=== PATIENT | male | born 1955 | race Caucasian/White ===

== ENCOUNTER 2019-08-22 15:08 | Outpatient (CLI) | payer MEDICARE, MEDICAID, SELFPAY | END 2019-08-22 15:09 | disposition home or self-care (01) | LOC: SPT 15:11 | PROVIDERS: Family Provider Nurse Practitioner Family; PCP Nurse Practitioner Family; Visit Provider Specialist | DX: Z47.89 Encounter for other orthopedic aftercare (principal) | CPT/HCPCS: 73610; L4361 ==

== ENCOUNTER → 2019-09-04 11:14 | Outpatient (BNVA) | payer MEDICARE, MEDICAID, SELFPAY | PROVIDERS: Family Provider Nurse Practitioner Family; PCP Nurse Practitioner Family; Visit Provider Specialist | DX: S82.491A Other fracture of shaft of right fibula, initial encounter for closed fracture (principal); X58.XXXA Exposure to other specified factors, initial encounter | CPT/HCPCS: 73610; 73630 ==

== ENCOUNTER → 2019-09-17 10:55 | Outpatient (BNVA) | payer MEDICARE, MEDICAID, SELFPAY | PROVIDERS: Family Provider Nurse Practitioner Family; PCP Nurse Practitioner Family; Visit Provider Nurse Practitioner | DX: F31.64 Bipolar disorder, current episode mixed, severe, with psychotic features (principal); F43.12 Post-traumatic stress disorder, chronic; G47.33 Obstructive sleep apnea (adult) (pediatric); Z87.820 Personal history of traumatic brain injury | CPT/HCPCS: 99213 ==

== ENCOUNTER → 2019-11-15 08:16 | Outpatient (BNVA) | payer MEDICARE, MEDICAID, SELFPAY | PROVIDERS: Visit Provider Nurse Practitioner | DX: F43.12 Post-traumatic stress disorder, chronic (principal); G47.33 Obstructive sleep apnea (adult) (pediatric); F31.64 Bipolar disorder, current episode mixed, severe, with psychotic features; Z87.820 Personal history of traumatic brain injury | CPT/HCPCS: 99214 ==

== ENCOUNTER → 2019-11-18 10:17 | Outpatient (BNVA) | payer MEDICARE, MEDICAID, SELFPAY | PROVIDERS: Visit Provider Specialist | DX: F31.9 Bipolar disorder, unspecified (principal); F60.9 Personality disorder, unspecified | CPT/HCPCS: 36415; 99214 ==

== ENCOUNTER 2019-11-18 11:40 | Outpatient (CLI) | payer MEDICARE, MEDICAID, SELFPAY | END 2019-11-18 11:41 | disposition home or self-care (01) | LOC: LAB 11:45 | PROVIDERS: Visit Provider Specialist | DX: G40.909 Epilepsy, unspecified, not intractable, without status epilepticus (principal) | CPT/HCPCS: 36415 ==

== ENCOUNTER → 2019-12-25 08:36 | Outpatient (BNVA) | payer MEDICARE, MEDICAID, SELFPAY | PROVIDERS: PCP Nurse Practitioner Family; Visit Provider Nurse Practitioner | DX: F43.12 Post-traumatic stress disorder, chronic (principal); F31.64 Bipolar disorder, current episode mixed, severe, with psychotic features; G47.33 Obstructive sleep apnea (adult) (pediatric); Z87.820 Personal history of traumatic brain injury; F41.1 Generalized anxiety disorder | CPT/HCPCS: 99214 ==

== ENCOUNTER 2020-02-05 12:41 | Outpatient (CLI) | payer MEDICARE, MEDICAID, SELFPAY ==
[2020-02-05 13:49] LABS: Basophils % 0.3 %; Eosinophils # 0.2 10^3/uL (0.0-0.8); Eosinophils % 3.7 %; Hematocrit 41.5 % (42.0-52.0); Hemoglobin 13.7 g/dL (11.7-16.6); Lymphocytes # 2.2 10^3/uL (0.8-4.8); Lymphocytes % 33.2 %; Mean Corpuscular Hemoglobin 30.4 pg (28.0-34.0); Monocytes # 0.6 10^3/uL (0.2-0.9); Monocytes % 9.6 %; Neutrophils # 3.5 10^3/uL (1.8-7.7); Neutrophils % 52.9 %; Nucleated Red Blood Cells % 0 %; Platelet Count 222 10^3/cmm (130-400); Red Blood Count 4.51 10^6/uL (4.1-5.3); Red Cell Distribution Width 12.9 % (12.1-15.1); White Blood Count 6.6 10^3/uL (4.0-10.0)
[2020-02-05 15:11] LABS: Thyroid Stimulating Hormone 1.82 uIU/mL (0.27-4.20)
[2020-02-05 15:23] LABS: Alanine Aminotransferase 10 U/L (0-41); Albumin Level 4.3 g/dL (3.5-5.2); Alkaline Phosphatase 143 IU/L (40-130); Anion Gap 17.1 (5-19); Aspartate Amino Transferase 17 U/L (0-40); Blood Urea Nitrogen 8 mg/dL (8-23); Calcium 8.9 mg/dL (8.5-10.5); Carbon Dioxide 25 mmol/L (22-29); Chloride 97 mmol/L (98-107); Chol HDL Ratio 3.15 mg/dL (1.0-5.00); Cholesterol 148 mg/dL (0-200); Globulin 2.5 g/dL (1.3-4.6); Glomerular Filtration Rate 67.8 mL/min (90-130); Glucose 100 mg/dL (65-115); HDL Cholesterol 47 mg/dL (60-100); LDL Cholesterol Calculated 79 mg/dL (50-129); LDL HDL Ratio 1.68 RATIO (0.00-3.22); Osmolality Calculated 276 mOsm/kg (285-295); Potassium 4.1 mmol/L (3.5-5.1); Sodium 135 mmol/L (136-145); Total Bilirubin 0.4 mg/dL (0.15-1.2); Total Protein 6.8 g/dL (6.6-8.7); Triglycerides 112 mg/dL (0-150)
[2020-02-05 15:54] LABS: Hepatitis C Virus Antibody Reactive (Nonreactive)
[2020-02-11 06:52] LABS: HEP C RNA Viral Load Quant <1.18 NOT DETECTED Log IU/mL (NOT DETECTED); HEP C RNA Viral Load Quant <15 NOT DETECTED IU/mL (NOT DETECTED)
== END 2020-02-05 12:42 | disposition home or self-care (01) ==
LOC: LAB 12:50
PROVIDERS: PCP Family Medicine; Visit Provider Family Medicine
DX: I10 Essential (primary) hypertension (principal); Z86.19 Personal history of other infectious and parasitic diseases; Z12.5 Encounter for screening for malignant neoplasm of prostate
CPT/HCPCS: 80053; 80061; 84153; 84443; 85025; 86803; 87522

== ENCOUNTER → 2020-02-07 07:40 | Outpatient (BNVA) | payer MEDICARE, MEDICAID, SELFPAY | PROVIDERS: PCP Family Medicine; Visit Provider Nurse Practitioner | DX: F31.64 Bipolar disorder, current episode mixed, severe, with psychotic features (principal); F43.12 Post-traumatic stress disorder, chronic | CPT/HCPCS: 99213 ==

== ENCOUNTER → 2020-02-17 08:54 | Outpatient (BNVA) | payer MEDICARE, MEDICAID, SELFPAY | PROVIDERS: PCP Family Medicine; Visit Provider Urology | DX: N35.919 Unspecified urethral stricture, male, unspecified site (principal); R82.71 Bacteriuria | CPT/HCPCS: 80053; 81001; 87086 ==

== ENCOUNTER → 2020-04-07 10:05 | Outpatient (BNVA) | payer OTHER, SELFPAY | PROVIDERS: PCP Family Medicine; Visit Provider Nurse Practitioner | DX: F31.64 Bipolar disorder, current episode mixed, severe, with psychotic features (principal); Z79.899 Other long term (current) drug therapy | CPT/HCPCS: 83036 ==

== ENCOUNTER → 2020-04-16 11:57 | Outpatient (BNVA) | payer MEDICARE, SELFPAY ==
[2020-04-08 11:18] VITALS: BP 120/74; BMI 40.5
== END ==
PROVIDERS: PCP Family Medicine; Visit Provider Nurse Practitioner Family
DX: K21.9 Gastro-esophageal reflux disease without esophagitis (principal); Z87.820 Personal history of traumatic brain injury; R42 Dizziness and giddiness; S09.90XA Unspecified injury of head, initial encounter; X58.XXXA Exposure to other specified factors, initial encounter; Z11.59 Encounter for screening for other viral diseases
CPT/HCPCS: 87635

== ENCOUNTER → 2020-04-21 08:13 | Outpatient (BNVA) | payer MEDICARE, MEDICAID, SELFPAY ==
[2020-04-08 11:18] VITALS: BP 120/74; BMI 40.5
== END ==
PROVIDERS: PCP Family Medicine; Visit Provider Nurse Practitioner
DX: F31.64 Bipolar disorder, current episode mixed, severe, with psychotic features (principal); F43.12 Post-traumatic stress disorder, chronic; F41.1 Generalized anxiety disorder
CPT/HCPCS: 99213

== ENCOUNTER 2020-04-22 08:24 | Outpatient (CLI) | payer MEDICARE, MEDICAID, SELFPAY ==
[2020-04-08 11:18] VITALS: BP 120/74; BMI 40.5
--- NOTE | 2020-04-22 09:00 | CT_ITS ---
WS: [id number] CT HEAD TECHNIQUE: Noncontrast CT of the head obtained from the skullbase to the vertex. CLINICAL INFORMATION: fall; hit head COMPARISON: CT and MRI July 06, 2017 DLP: 925.[address] scans at [facility] use at least one of these dose optimization techniques: automat ed exposure control; mA and/or kV adjustment per patient size (includes targeted exams where dose is matched to clinical indication); or iterative reconstruction. FINDINGS: No evidence of intracranial hemorrhage or mass effect. Ventricular system and basal cisterns are wilkins nt. 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 Chronic fracture repair involving the left facial bones, frontal sinus, and anterior nasal bones. N o extra-axial fluid collections. No evidence of mass or mass effect. Fusiform basilar artery ectasia appears unchanged since 2014. Paranasal sinuses and mastoid air cells are well aerated. .Normal visualized soft tissues. CT/CT head wo con* [id number] IMPRESSION: 1. No evidence of intracranial hemorrhage or mass effect. 2. 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 Mild ex vacuo dilatation of the frontal horns of greate r than right. 3. Chronic left facial and mid face fractures. 4. 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
== END 2020-04-22 08:25 | disposition home or self-care (01) ==
LOC: RADWPI 08:31
PROVIDERS: PCP Family Medicine; Visit Provider Nurse Practitioner Family
DX: G93.89 Other specified disorders of brain (principal); S02.82XA Fracture of other specified skull and facial bones, left side, initial encounter for closed fracture; W19.XXXA Unspecified fall, initial encounter
CPT/HCPCS: 70450

== ENCOUNTER → 2020-05-13 12:09 | Outpatient (BNVA) | payer MEDICARE, SELFPAY ==
[2020-04-08 11:18] VITALS: BP 120/74; BMI 40.5
== END ==
PROVIDERS: PCP Family Medicine; Visit Provider Family Medicine
DX: R60.1 Generalized edema (principal); I10 Essential (primary) hypertension
CPT/HCPCS: 80053; 80061; 85025

== ENCOUNTER → 2020-06-05 07:30 | Outpatient (BNVA) | payer MEDICARE, MEDICAID, SELFPAY ==
[2020-04-08 11:18] VITALS: BP 120/74; BMI 40.5
== END ==
PROVIDERS: PCP Family Medicine; Visit Provider Nurse Practitioner
DX: F43.12 Post-traumatic stress disorder, chronic (principal); F31.64 Bipolar disorder, current episode mixed, severe, with psychotic features
CPT/HCPCS: 99214

== ENCOUNTER 2020-06-21 06:00 | Outpatient (RCR) | payer MEDICARE, SELFPAY ==
[2020-04-08 11:18] VITALS: BP 120/74; BMI 40.5
== END 2020-07-20 23:59 | disposition home or self-care (01) ==
LOC: TPT 06:00
PROVIDERS: PCP Family Medicine; Referring Provider Family Medicine; Visit Provider Family Medicine
DX: S82.851D Displaced trimalleolar fracture of right lower leg, subsequent encounter for closed fracture with routine healing (principal); X58.XXXD Exposure to other specified factors, subsequent encounter; M79.671 Pain in right foot
CPT/HCPCS: 97110; 97161

== ENCOUNTER → 2020-07-13 07:36 | Outpatient (BNVA) | payer MEDICARE, MEDICAID, SELFPAY ==
[2020-04-08 11:18] VITALS: BP 120/74; BMI 40.5
== END ==
PROVIDERS: PCP Family Medicine; Visit Provider Nurse Practitioner
DX: F43.12 Post-traumatic stress disorder, chronic (principal); F31.64 Bipolar disorder, current episode mixed, severe, with psychotic features
CPT/HCPCS: 99213

== ENCOUNTER 2020-07-21 06:00 | Outpatient (RCR) | payer MEDICARE, SELFPAY ==
[2020-04-08 11:18] VITALS: BP 120/74; BMI 40.5
== END 2020-08-20 23:59 | disposition home or self-care (01) ==
LOC: TPT 06:00
PROVIDERS: PCP Family Medicine; Referring Provider Family Medicine; Visit Provider Family Medicine
DX: S82.851D Displaced trimalleolar fracture of right lower leg, subsequent encounter for closed fracture with routine healing (principal); X58.XXXD Exposure to other specified factors, subsequent encounter; M79.671 Pain in right foot
CPT/HCPCS: 97110

== ENCOUNTER 2020-08-04 14:46 | Emergency (ER) | payer MEDICARE, MEDICAID, SELFPAY ==
[2020-04-08 11:18] VITALS: BP 120/74; BMI 40.5
[2020-08-04 15:11] VITALS: BP 138/91; PULSE 77; RESP 18; TEMP 36.4; O2SAT 96; BMI 40.8
--- NOTE | 2020-08-04 15:58 | ED_ITS ---
HPI - Skin/Abscess/Foreign Bdy General: Chief complaint: Skin/Abscess/Foreign Body Stated complaint: RAISED BUMPS ON ARMS Time Seen by Provider: 08/04/20 15:58 Source: patient Mode of arrival: ambulatory Limitations: no limitations History of Present Illness: HPI narrative: Patient comes in with 2 indurated lesions 1 to the left upper arm that is enlarged and swollen and one in the right upper arm that consists of mainly redness and induration. Patient reports areas of started about 2 to 3 days ago. Patient had a previous area in June which was thought to be a spider bite. Review of Systems General: Reports: 10 or more systems reviewed and unremarkable except in HPI and below Skin/Breast: Reports: erythema and skin tenderness PFSH ED PFSH: Medical History (Updated 08/04/20 @ 16:19 by GLADYS Perez) Abdominal fibromatosis Benign prostatic hyperplasia without lower urinary tract symptoms Bipolar affective, mixed Bipolar disorder, current episode mixed, severe, with psychotic features Bipolar II disorder Chronic pain of right knee Complex partial epilepsy with generalization Decreased mobility and endurance Enrolled in chronic care management Gastro-esophageal reflux disease without esophagitis Left spastic hemiparesis Obstructive sleep apnea Obstructive sleep apnea (adult) (pediatric) Personal history of traumatic brain injury Post-traumatic stress disorder, chronic Primary osteoarthritis of right knee Skin cancer, basal cell face Trimalleolar fracture of right ankle Urethral stricture Vitamin D deficiency Surgical History Status post left partial knee replacement Status post open reduction and internal fixation of fracture with nonunion LEFT FEMUR Status post right partial knee replacement Family History Mother Hypertension Cancer Father , age 75 Stroke Diabetes Alcoholism Hypertension Other Hypercholesteremia Social History Smoking and tobacco status: never smoked Second hand smoke exposure: No Alcohol intake: former Lives independently: Yes Household members: none Housing: House Marital status: Legally Current occupational status: disabled History of recent travel: No Current gender identity: Male Physical Exam Const: COMMON NORMALS: no acute distress and patient oriented x3 GENERAL APPEARANCE: cooperative HENMT: COMMON NORMALS: normocephalic and Normal external nose present HEAD & SCALP: normal to inspection and normocephalic NOSE: Normal external nose present MOUTH: Normal oral and palatal mucosa present Eye: GENERAL EYE: appearance normal, both eyes and all related structures Neck/C-Spine: COMMON NORMALS: full ROM Chest: COMMONS NORMALS: normal inspection of the chest Resp: COMMON NORMALS: normal respiratory effort EFFORT & INSPECTION: Yes able to speak in complete sentences Cardio: COMMON NORMALS: regular rate and regular rhythm RATE: regular rate RHYTHM: regular rhythm GI: COMMON NORMALS: non-tender Back/Pelvis: COMMON NORMALS: thoracic and lumbar spine normal to inspection Extremity: COMMON NORMALS: normal to inspection Neuro: COMMON NORMALS: patient oriented x3 and moves all extremities Psych: COMMON NORMALS: mental status grossly normal and cooperative Skin: NARRATIVE SKIN EXAM: 1 area of redness to the right upper extremity proximally 6 cm in diameter with a central 1 cm area of induration. Second area is to the left upper arm with 3 cm fluctuant mass with a total of 7 cm of redness. Procedures Abscess I/D Site: upper extremity Side (if applicable): left Local Anesthetic: lidocaine 1% and with epi Amount of anesthesia used (mL): 4 Technique: incised with #11 blade Amount of fluid expressed (mL): 5 Irrigation: Yes Packing used?: none Complications: pain Course Vital Signs: Vital signs: Vital Signs Temperature 97.6 F 08/04/20 15:11 Pulse Rate 77 08/04/20 15:11 Respiratory Rate 18 08/04/20 15:11 Blood Pressure 138/91 08/04/20 15:11 Pulse Oximetry 96 08/04/20 15:11 MDM - Skin/Abscess/Foreign Bdy MDM Narrative: Medical decision making narrative: Patient comes in with abscess to the left upper extremity and an area of redness to the right upper extremity. Differential diagnosis includes cellulitis, abscess, IV drug use, insect bite with local reaction. Left upper arm lesion was lanced with a moderate amount of purulent drainage. Patient was put on clindamycin 450 mg twice a day for infection. Encourage patient drink plenty of fluids and follow- up with primary care. Patient reported understanding agreed to plan. Discharge Plan Discharge Patient Disposition: Home Clinical Impression: Abscess of skin or subcutaneous tissue Qualifiers: Site of cutaneous abscess: extremity Site of cutaneous abscess of extremity: upper extremity Laterality: unspecified laterality Qualified Code(s): L02.419 - Cutaneous abscess of limb, unspecified Condition: Stable Prescriptions: New clindamycin HCl 150 mg capsule 450 mg PO BID 7 Days Qty: 42 RF: 0 No Action Combigan 0.2-0.5 % drops 1 drop ophthalmic (eye) BID RF: 0 naproxen [EC-Naproxen] 375 mg tablet,delayed release (DR/EC) 375 mg PO BID RF: 0 cholecalciferol (vitamin D3) 2,000 unit tablet 2,000 unit PO ONCE RF: 0 TRAZODONE 100 mg tablet 100 mg PO .at bed RF: 0 triamcinolone acetonide [Nasacort] 55 mcg aerosol,spray 2 spray INTRANASAL DAILY Qty: 16.9 RF: 3 triamterene-hydrochlorothiazid 37.5-25 mg tablet 1 tab PO QAM Qty: 30 RF: 3 albuterol sulfate [ProAir HFA] 90 mcg/actuation HFA aerosol inhaler 2 puff INHALATION Q6H PRN (Reason: bronchospasm) Qty: 8.5 RF: 2 pantoprazole 40 mg tablet,delayed release (DR/EC) See Rx Instructions .ROUTE .COMPLEX Qty: 90 RF: 0 tamsulosin 0.4 mg capsule See Rx Instructions .ROUTE .COMPLEX Qty: 180 RF: 0 zolpidem 10 mg tablet 10 mg PO .AT HS Qty: 30 RF: 2 escitalopram oxalate [Lexapro] 10 mg tablet 10 mg PO DAILY Qty: 30 RF: 2 paliperidone [Invega] 6 mg tablet extended release 24hr 6 mg PO BID Qty: 60 RF: 2 hydroxyzine HCl 25 mg tablet 50 mg PO .HS PRN (Reason: sleep) Qty: 60 RF: 2 sulfamethoxazole-trimethoprim [Bactrim DS] 800-160 mg tablet 1 tab PO BID Qty: 20 RF: 0 oxcarbazepine 600 mg tablet See Rx Instructions .ROUTE .COMPLEX Qty: 90 RF: 2 docusate sodium 100 mg capsule 200 mg PO BID Qty: 120 RF: 3 sucralfate 1 gram tablet See Rx Instructions .ROUTE .COMPLEX Qty: 120 RF: 2 Discharge Orders: Discharge ED (Routine); Ordered 08/04/20 Ordered By: Marcos Meade Referrals: Lay Lewis MD [Primary Care Provider] - Patient Instructions: Abscess Incision and Drainage (ED) Activity Restrictions/Additional Instructions: Take antibiotics as directed. Use warm moist heat packs to the areas. Drink plenty of water. Follow-up with primary care as needed. Return to the emergency department for new concerns. Coding Level of Care Code ED Repairer And Checker for Padilla Tucker Exam Comprehensive
[2020-08-04] MEDS: clindamycin 150 mg Capsule 450 MG PO (16:24)
[2020-08-04] MEDS: lidocaine 1% INJ 20 mL INJECTION (16:25)
== END 2020-08-04 16:32 | disposition home or self-care (01) ==
PROVIDERS: Emergency Provider Nurse Practitioner Family; PCP Family Medicine
DX: L02.414 Cutaneous abscess of left upper limb (principal)
CPT/HCPCS: 10060; 12345; 99281; 99283

== ENCOUNTER 2020-10-01 09:31 | Emergency (ER) | payer MEDICARE, MEDICAID, SELFPAY ==
[2020-04-08 11:18] VITALS: BP 120/74; BMI 40.5
[2020-10-01 09:32] VITALS: BP 147/77; PULSE 88; RESP 24; TEMP 36.8; O2SAT 92; BMI 40.8
--- NOTE | 2020-10-01 09:35 | XR_ITS ---
WS: [id number] Portable AP upright chest, 10/01/2020 Clinical Data: dyspnea/cough Comparison: Portable chest, 07/19/2017. Findings: No nodules, masses or effusions are seen. The heart is normal. The pulmonary vascularity is not increased. No pneumonia or pneumothorax is seen. The aortic arch and descending aorta are tortuo us. XR/XR chest 1V portable [id number] Impression: Atherosclerosis.
--- NOTE | 2020-10-01 09:37 | ECG_ITS ---
[facility] Test Date: 2020-10-01 Pat Name: Jd Gerber Department: Room: Gender: Male Ways Operator: : 1955 Requested By: Justin Sahu Order Number: [id number] Cami MD: Raad Briones M.D. Measurements Intervals [place] Rate: 108 P: 54 TX: 152 QRS: 60 QRSD: 67 T: 52 QT: 316 QTc: 425 Interpretive Statements SINUS TACHYCARDIA Compared to ECG 05/08/2018 11:23:11 Sinus rhythm no longer present Electronically Signed On 10-01-2020 16:02:57 DANCE HALL HOSTESS by Raad Briones M.D. [email or web address] state east [email or web address]/store/[id number]
--- NOTE | 2020-10-01 09:55 | ED_ITS ---
HPI - Nausea/Vomiting/Diarrhea General: Chief complaint: Nausea/Vomiting/Diarrhea Stated complaint: N/V SOB Time Seen by Provider: 10/01/20 09:31 History of Present Illness: HPI Narrative: This 65-year-old gentleman arrived by ambulance with complaint of nausea and vomiting and a cough since last night. Patient states he ate 3 fruit bars late last night and he got sick after that. Said he was feeling fine yesterday he denies any Covid exposure denies any fever chills or exposure to him by also has been sick. Said he feels okay right now but just when get checked out. MD elicited complaint: nausea, vomiting and other (Cough) Onset (ago): hour(s) Description of vomiting: food contents Associated nausea: Yes Associated abdominal pain: No Location of pain: None Associated symtoms: Reports no associated symptoms and nausea; Denies anxiety, change in vision, chest pain or headache(s) Review of Systems Const: Denies: fever(s), chills or body aches Eyes: Denies: change in vision or blurry vision ENMT: Denies: throat pain or nasal congestion Card: Denies: chest pain or dyspnea on exertion Resp: Reports: non-productive cough; Denies: dyspnea or productive cough GI: Reports: nausea and vomiting : Denies: difficulty urinating Musc: Denies: extremity pain Skin/Breast: Denies: rash Neuro: Denies: headache(s) Psych: Denies: anxiety or depression Cresencio/Lymph: Denies: easy bruising PFSH ED PFSH: Medical History (Updated 10/01/20 @ 13:42 by GLADYS Osorio) Abdominal fibromatosis Benign prostatic hyperplasia without lower urinary tract symptoms Bipolar affective, mixed Bipolar disorder, current episode mixed, severe, with psychotic features Bipolar II disorder Chronic pain of right knee Complex partial epilepsy with generalization Decreased mobility and endurance Enrolled in chronic care management Gastro-esophageal reflux disease without esophagitis Left spastic hemiparesis Obstructive sleep apnea Obstructive sleep apnea (adult) (pediatric) Personal history of traumatic brain injury Post-traumatic stress disorder, chronic Primary osteoarthritis of right knee Skin cancer, basal cell face Trimalleolar fracture of right ankle Urethral stricture Vitamin D deficiency Surgical History Status post left partial knee replacement Status post open reduction and internal fixation of fracture with nonunion LEFT FEMUR Status post right partial knee replacement Family History Mother Hypertension Cancer Father , age 75 Stroke Diabetes Alcoholism Hypertension Other Hypercholesteremia Social History Smoking and tobacco status: never smoked Second hand smoke exposure: No Alcohol intake: former Lives independently: Yes Household members: none Housing: House Marital status: Legally Current occupational status: disabled History of recent travel: No Current gender identity: Male Physical Exam Const: COMMON NORMALS: no acute distress, average body habitus and patient oriented x3 HENMT: COMMON NORMALS: normocephalic HEAD & SCALP: normal to inspection and normocephalic FACE & SINUS: normal facial exam Eye: COMMON NORMALS: conjunctivae normal GENERAL EYE: appearance normal, both eyes and all related structures CONJUNCTIVA: Yes conjunctivae normal Neck/C-Spine: COMMON NORMALS: no JVD Chest: COMMONS NORMALS: normal inspection of the chest Resp: COMMON NORMALS: normal respiratory effort and clear to auscultation bilaterally AUSCULTATION: clear to auscultation bilaterally Cardio: COMMON NORMALS: no JVD, regular rate and regular rhythm RATE: regular rate RHYTHM: regular rhythm GI: COMMON NORMALS: Normal to inspection, nondistended, normoactive bowel sounds present PALPATION: Yes Tenderness to palpation present (GI) Details: RUQ Extremity: COMMON NORMALS: normal to inspection and full ROM Neuro: COMMON NORMALS: patient oriented x3 Skin: NARRATIVE SKIN EXAM: Very dry skin lower extremities with nonpitting edema. Course Vital Signs: Vital signs: Vital Signs Temperature 98.2 F 10/01/20 09:32 Pulse Rate 93 10/01/20 12:34 Respiratory Rate 24 H 10/01/20 09:32 Blood Pressure 99/67 10/01/20 12:34 Pulse Oximetry 100 10/01/20 12:34 MDM - Nausea/Vomiting/Diarrhea MDM Narrative: Medical decision making narrative: Dr. Manrique asked me to see this patient. Patient complains about nausea and vomiting. Started last night after eating 3 fruit bars. Patient's troponin came back elevated at 549 shared the results with Dr. Manrique. Discussed results with Dr. Hewitt at 1343 patient good for discharge is follow-up primary care provider repeat labs Lab Data: Labs: Lab Results 10/01/20 10/01/20 10/01/20 Range/Units 10:04 10:04 10:04 WBC 9.9 (4.0-10.0) 10^3/ uL RBC 4.46 (4.1-5.3) 10^6/u L Hgb 13.2 (11.7-16.6) g/dL Hct 40.6 L (42.0-52.0) % MCV 91.0 (80-94) fL MCH 29.6 (28.0-34.0) pg MCHC 32.5 (30.0-36.0) g/dL RDW 13.1 (12.1-15.1) % Plt Count 221 (130-400) 10^3/c mm MPV 10.5 H (7.4-10.4) fL Neut % (Auto) 73.6 % Lymph % (Auto) 15.3 % Churchill % (Auto) 8.9 % Eos % (Auto) 1.5 % Baso % (Auto) 0.3 % Neut # (Auto) 7.27 (1.8-7.7) 10^3/u L Lymph # (Auto) 1.5 (0.8-4.8) 10^3/u L Churchill # (Auto) 0.9 (0.2-0.9) 10^3/u L Eos # (Auto) 0.2 (0.0-0.8) 10^3/u L Baso # (Auto) 0.0 (0.0-0.1) 10^3/u L Nucleated RBC % (a uto) 0 % Nucleated RBCs # 0.0 /100WBC Sodium 137 (136-145) mmol/L Potassium 4.0 (3.5-5.1) mmol/L Chloride 101 (98-107) mmol/L Carbon Dioxide 27 (22-29) mmol/L Anion Gap 13.0 (5-19) BUN 19 (8-23) mg/dL Creatinine 0.9 (0.7-1.2) mg/dL GFR Calculation 85.2 L (90-130) mL/min Glucose 111 (65-115) mg/dL Calculated Osmolal ity 287 (285-295) mOsm/k g Calcium 9.0 (8.5-10.5) mg/dL Magnesium 2.0 (1.7-2.3) mg/dL Total Bilirubin 0.6 (0.15-1.2) mg/dL AST 26 (0-40) U/L ALT 23 (0-41) U/L Alkaline Phosphata se 86 (40-130) IU/L Creatine Kinase 549 H* (39-308) U/L Troponin T Baselin e 18 H (0-15) ng/L Troponin T 120 Min kip (0-15) ng/L Delta Troponin T (0-10) ABS# Total Protein 6.5 L (6.6-8.7) g/dL Albumin 3.8 (3.5-5.2) g/dL Globulin 2.7 (1.3-4.6) g/dL Lipase 30 (13-60) U/L Urine Color (Yellow) Urine Appearance (CLEAR) Urine pH (5-7) Ur Specific Gravit y (1.005-1.030) Urine Protein (Negative) Urine Glucose (UA) (Normal) Urine Ketones (Negative) Urine Blood (Negative) Urine Nitrate (Negative) Urine Bilirubin (Negative) Prot Sulfosalicyli c Acd (Negative) Urine Urobilinogen (Negative) mg/dL Ur Leukocyte Mita ase (Negative) Urine RBC (0-2) /hpf Urine WBC (0-5) /hpf Ur Squamous Epith Cells (0-5) /hpf Amorphous Sediment /hpf Urine Bacteria (NONE) /hpf 10/01/20 10/01/20 Range/Units 11:01 12:30 WBC (4.0-10.0) 10^3/ uL RBC (4.1-5.3) 10^6/u L Hgb (11.7-16.6) g/dL Hct (42.0-52.0) % MCV (80-94) fL MCH (28.0-34.0) pg MCHC (30.0-36.0) g/dL RDW (12.1-15.1) % Plt Count (130-400) 10^3/c mm MPV (7.4-10.4) fL Neut % (Auto) % Lymph % (Auto) % Churchill % (Auto) % Eos % (Auto) % Baso % (Auto) % Neut # (Auto) (1.8-7.7) 10^3/u L Lymph # (Auto) (0.8-4.8) 10^3/u L Churchill # (Auto) (0.2-0.9) 10^3/u L Eos # (Auto) (0.0-0.8) 10^3/u L Baso # (Auto) (0.0-0.1) 10^3/u L Nucleated RBC % (a uto) % Nucleated RBCs # /100WBC Sodium (136-145) mmol/L Potassium (3.5-5.1) mmol/L Chloride (98-107) mmol/L Carbon Dioxide (22-29) mmol/L Anion Gap (5-19) BUN (8-23) mg/dL Creatinine (0.7-1.2) mg/dL GFR Calculation (90-130) mL/min Glucose (65-115) mg/dL Calculated Osmolal ity (285-295) mOsm/k g Calcium (8.5-10.5) mg/dL Magnesium (1.7-2.3) mg/dL Total Bilirubin (0.15-1.2) mg/dL AST (0-40) U/L ALT (0-41) U/L Alkaline Phosphata se (40-130) IU/L Creatine Kinase (39-308) U/L Troponin T Baselin e (0-15) ng/L Troponin T 120 Min kip 15.53 H (0-15) ng/L Delta Troponin T -2.47 L (0-10) ABS# Total Protein (6.6-8.7) g/dL Albumin (3.5-5.2) g/dL Globulin (1.3-4.6) g/dL Lipase (13-60) U/L Urine Color Yellow (Yellow) Urine Appearance Sl hazy (CLEAR) Urine pH 8 H (5-7) Ur Specific Gravit y 1.015 (1.005-1.030) Urine Protein Neg (Negative) Urine Glucose (UA) Norm (Normal) Urine Ketones 1+ H (Negative) Urine Blood Neg (Negative) Urine Nitrate Positive H (Negative) Urine Bilirubin Neg (Negative) Prot Sulfosalicyli c Acd Negative (Negative) Urine Urobilinogen Norm (Negative) mg/dL Ur Leukocyte Mita ase Negative (Negative) Urine RBC 0-4 H (0-2) /hpf Urine WBC 0-4 H (0-5) /hpf Ur Squamous Epith Cells 0-4 H (0-5) /hpf Amorphous Sediment 3+ /hpf Urine Bacteria 1+ H (NONE) /hpf Discharge Plan Discharge Patient Disposition: Home Clinical Impression: Acute UTI Condition: Stable Prescriptions: New Keflex 500 mg capsule 500 mg PO TID 7 Days Qty: 21 RF: 0 Zofran 4 mg tablet 4 mg PO Q8H 3 Days Qty: 9 RF: 0 No Action Combigan 0.2-0.5 % drops 1 drop ophthalmic (eye) BID RF: 0 naproxen [EC-Naproxen] 375 mg tablet,delayed release (DR/EC) 375 mg PO BID PRN (Reason: Pain) RF: 0 cholecalciferol (vitamin D3) 2,000 unit tablet 2,000 unit PO DAILY RF: 0 triamcinolone acetonide [Nasacort] 55 mcg aerosol,spray 2 spray INTRANASAL DAILY Qty: 16.9 RF: 3 albuterol sulfate [ProAir HFA] 90 mcg/actuation HFA aerosol inhaler 2 puff INHALATION Q6H PRN (Reason: bronchospasm) Qty: 8.5 RF: 2 escitalopram oxalate [Lexapro] 10 mg tablet 10 mg PO DAILY Qty: 30 RF: 2 paliperidone [Invega] 6 mg tablet extended release 24hr 6 mg PO BID Qty: 60 RF: 2 sucralfate 1 gram tablet See Rx Instructions .ROUTE .COMPLEX Qty: 120 RF: 2 tamsulosin 0.4 mg capsule 0.4 mg PO BID RF: 0 pantoprazole 40 mg tablet,delayed release (DR/EC) 40 mg PO BEDTIME RF: 0 docusate sodium 100 mg capsule 100 mg PO BID RF: 0 triamterene-hydrochlorothiazid 37.5-25 mg tablet 1 tab PO DAILY RF: 0 oxcarbazepine 600 mg tablet 900 mg PO BID RF: 0 hydroxyzine HCl 25 mg tablet 50 mg PO BEDTIME PRN (Reason: sleep) RF: 0 zolpidem 10 mg tablet 10 mg PO BEDTIME RF: 0 Discharge Orders: Discharge ED (Routine); Ordered 10/01/20 Ordered By: Garcia Galdamez Referrals: Lay Lewis MD [Primary Care Provider] - Discharge Diet: Advance as tolerated Discharge Activity: Resume usual activity Patient Instructions: Urinary Tract Infection in Men (ED), Opioid Safety Activity Restrictions/Additional Instructions: Follow-up with medical provider as directed. Take medications as prescribed. Return to the ER or your medical provider if condition worsens. Please read and understand discharge instructions. If any questions ask please. Your primary care doctor within 7 to 10 days and repeat urinalysis make sure infection is cleared. Also make sure that they take look your gallbladder again make sure that the edema is gone down. Coding Level of Care Code ED Music Professor for Chg Fwd Exam Comprehensive
--- NOTE | 2020-10-01 10:09 | US_ITS ---
WS: [id number] ULTRASOUND ABDOMEN LIMITED CLINICAL INFORMATION: RUQ pain COMPARISON: None. FINDINGS: Liver Size: Mild hepatomegaly. Craniocaudal length: 16.9 cm. Echogenicity: Diffuse fatty infiltration the liver. Surface nodularity: None. Mass (size and location): None. Bile ducts Intrahepatic ducts: Normal. Common bile duct diameter: 0.3 cm. Gallbladder Mild gallbladder wall thickening with a small amount of gallbladder wall edema. Gallstones: None. Gallbladder sludge: None. Gallbladder wall thickenin.2 mm Pericholecystic fluid: None. Sonographic Patel sign: Absent. Pancreas Normal as visualized. Right kidney: Normal. Hydronephrosis: None. Size: 12.0 cm x 6.2 cm x 5.2 cm. Abdominal aorta and IVC Visualized portions are normal. Ascites: None. US/US gall bladder [id number] IMPRESSION: 1. Mild hepatomegaly with diffuse fatty infiltration. 2. Mild gallbladder wall thickening with small amount of edema. No cholelithia sis. Recommend correlation for cholecystitis. Gallbladder function can be furth er evaluated with HIDA scan. 3. Normal common bile duct. 4. No hydronephrosis in right kidney.
[2020-10-01 10:17] VITALS: O2SAT 100
[2020-10-01 10:20] LABS: Basophils % 0.3 %; Eosinophils # 0.2 10^3/uL (0.0-0.8); Eosinophils % 1.5 %; Hematocrit 40.6 % (42.0-52.0); Hemoglobin 13.2 g/dL (11.7-16.6); Lymphocytes # 1.5 10^3/uL (0.8-4.8); Lymphocytes % 15.3 %; Mean Corpuscular HGB Conc 32.5 g/dL (30.0-36.0); Mean Corpuscular Hemoglobin 29.6 pg (28.0-34.0); Mean Platelet Volume 10.5 fL (7.4-10.4); Monocytes # 0.9 10^3/uL (0.2-0.9); Monocytes % 8.9 %; Neutrophils # 7.27 10^3/uL (1.8-7.7); Neutrophils % 73.6 %; Nucleated Red Blood Cells % 0 %; Platelet Count 221 10^3/cmm (130-400); Red Blood Count 4.46 10^6/uL (4.1-5.3); Red Cell Distribution Width 13.1 % (12.1-15.1); White Blood Count 9.9 10^3/uL (4.0-10.0)
[2020-10-01] MEDS: ondansetron 2 mg/ML SDV 2 mL 4 MG IVP (10:28)
[2020-10-01] MEDS: morphine 4 mg/mL SDV 1 mL IVP (10:28)
--- NOTE | 2020-10-01 10:31 | PC.NURSE ---
PORTABLE ULTRASOUND AT BEDSIDE
[2020-10-01 10:35] LABS: Alanine Aminotransferase 23 U/L (0-41); Albumin Level 3.8 g/dL (3.5-5.2); Alkaline Phosphatase 86 IU/L (40-130); Aspartate Amino Transferase 26 U/L (0-40); Blood Urea Nitrogen 19 mg/dL (8-23); Carbon Dioxide 27 mmol/L (22-29); Chloride 101 mmol/L (98-107); Globulin 2.7 g/dL (1.3-4.6); Glomerular Filtration Rate 85.2 mL/min (90-130); Glucose 111 mg/dL (65-115); Lipase 30 U/L (13-60); Osmolality Calculated 287 mOsm/kg (285-295); Sodium 137 mmol/L (136-145); Total Bilirubin 0.6 mg/dL (0.15-1.2); Total Protein 6.5 g/dL (6.6-8.7)
[2020-10-01 10:36] LABS: Creatine Phosphokinase 549 U/L (39-308)
[2020-10-01 10:37] LABS: Troponin(5th) Baseline 18 ng/L (0-15)
[2020-10-01 11:19] LABS: Urine Appearance SL Hazy (CLEAR); Urine Color Yellow (Yellow)
[2020-10-01 11:20] LABS: Add Urine Culture? Yes; Add Urine Microscopic? YES; Amorphous Sediment Urine 3+ /hpf; Bacteria Urine 1+ /hpf; Bilirubin Urine Neg (Negative); Blood Urine Neg (Negative); Glucose Urine UA Norm (Normal); Ketones Urine 1+ (Negative); Leukocyte Esterase Urine Negative (Negative); Nitrate Urine Positive (Negative); Protein Urine Neg (Negative); RBC Urine 0-4 /hpf (0-2); Specific Gravity, Urine 1.015 (1.005-1.030); Squamous Epithelial Cell Urine 0-4 /hpf (0-5); Sulfosalicylic Acid Urine Negative (Negative); Urobilinogen Urine Norm (Negative); WBC Urine 0-4 /hpf (0-5); pH Urine 8 (5-7)
--- NOTE | 2020-10-01 11:37 | ECG_ITS ---
Test Date: 2020-10-01 Pat Name: Jd Gerber Department: Room: Gender: Male Deposit Refund Clerk: : 1955 Requested By: Justin Sahu Order Number: [id number] Cami MD: Raad Briones M.D. Measurements Intervals [place] Rate: 93 P: 55 ME: 170 QRS: 43 QRSD: 71 T: 55 QT: 328 QTc: 409 Interpretive Statements SINUS RHYTHM Compared to ECG 10/01/2020 10:48:08 Sinus tachycardia no longer present Electronically Signed On 10-01-2020 16:05:45 ORGANIC PREPARATION ANALYST by Raad Briones M.D. [id number]
[2020-10-01 11:43] VITALS: BP 120/69; PULSE 101; O2SAT 97
[2020-10-01] MEDS: cefTRIAXone 1,000 MG in sodium chloride 0.9% (plus) 50 ML 100 MG IV (12:32)
[2020-10-01 12:34] VITALS: BP 99/67; PULSE 93; O2SAT 100
[2020-10-01 13:27] LABS: Troponin 5 2HR 15.53 ng/L (0-15)
[2020-10-01 13:29] LABS: Troponin 5 2HR Delta -2.47 ABS# (0-10)
[2020-10-01 13:46] VITALS: BP 109/68; PULSE 80; O2SAT 95
== END 2020-10-01 14:00 | disposition home or self-care (01) ==
PROVIDERS: Family Medicine; Emergency Provider Nurse Practitioner Family; PCP Family Medicine
DX: N39.0 Urinary tract infection, site not specified (principal); R11.2 Nausea with vomiting, unspecified; I10 Essential (primary) hypertension; K21.9 Gastro-esophageal reflux disease without esophagitis; G47.33 Obstructive sleep apnea (adult) (pediatric); F43.12 Post-traumatic stress disorder, chronic; F31.64 Bipolar disorder, current episode mixed, severe, with psychotic features; Z87.820 Personal history of traumatic brain injury
CPT/HCPCS: 12345; 36415; 71045; 76705; 80053; 81001; 82550; 83690; 83735; 84484; 85025; 87086; 93005; 96365; 96375; 99284; J0696; J2270; J2405

== ENCOUNTER → 2020-11-25 16:17 | Outpatient (BNVA) | payer MEDICARE, MEDICAID, SELFPAY ==
[2020-10-23 13:26] VITALS: BP 120/74; BMI 40.5
== END ==
PROVIDERS: PCP Family Medicine; Visit Provider Nurse Practitioner Family
DX: M25.572 Pain in left ankle and joints of left foot (principal); N39.0 Urinary tract infection, site not specified; G40.909 Epilepsy, unspecified, not intractable, without status epilepticus
CPT/HCPCS: 73610; 80183; 81003

== ENCOUNTER → 2020-12-15 08:11 | Outpatient (BNVA) | payer MEDICARE, MEDICAID, SELFPAY ==
[2020-10-23 13:26] VITALS: BP 120/74; BMI 40.5
== END ==
PROVIDERS: PCP Family Medicine; Visit Provider Nurse Practitioner
DX: F31.64 Bipolar disorder, current episode mixed, severe, with psychotic features (principal); F43.12 Post-traumatic stress disorder, chronic
CPT/HCPCS: 99214

== ENCOUNTER → 2020-12-31 15:48 | Outpatient (BNVA) | payer MEDICARE, MEDICAID, SELFPAY ==
[2020-10-23 13:26] VITALS: BP 120/74; BMI 40.5
== END ==
PROVIDERS: PCP Family Medicine; Visit Provider Family Medicine
DX: M25.561 Pain in right knee (principal); M25.562 Pain in left knee; G89.28 Other chronic postprocedural pain; Z96.653 Presence of artificial knee joint, bilateral; N52.9 Male erectile dysfunction, unspecified; G89.29 Other chronic pain
CPT/HCPCS: 84403

== ENCOUNTER → 2021-04-07 09:50 | Outpatient (BNVA) | payer MEDICARE, MEDICAID, SELFPAY ==
[2020-10-23 13:26] VITALS: BP 120/74; BMI 40.5
== END ==
PROVIDERS: PCP Family Medicine; Visit Provider Nurse Practitioner
DX: F31.64 Bipolar disorder, current episode mixed, severe, with psychotic features (principal); F43.12 Post-traumatic stress disorder, chronic
CPT/HCPCS: 99214

== ENCOUNTER → 2021-06-23 08:16 | Outpatient (BNVA) | payer MEDICARE, MEDICAID, SELFPAY ==
[2020-10-23 13:26] VITALS: BP 120/74; BMI 40.5
== END ==
PROVIDERS: PCP Family Medicine; Visit Provider Nurse Practitioner
DX: F31.64 Bipolar disorder, current episode mixed, severe, with psychotic features (principal); F43.12 Post-traumatic stress disorder, chronic
CPT/HCPCS: 99214

== ENCOUNTER → 2021-06-24 15:20 | Outpatient (BNVA) | payer MEDICARE, MEDICAID, SELFPAY ==
[2020-10-23 13:26] VITALS: BP 120/74; BMI 40.5
== END ==
PROVIDERS: PCP Family Medicine; Visit Provider Family Medicine
DX: M25.561 Pain in right knee (principal); G89.29 Other chronic pain; K21.9 Gastro-esophageal reflux disease without esophagitis; Z12.5 Encounter for screening for malignant neoplasm of prostate; I10 Essential (primary) hypertension
CPT/HCPCS: 73562; 80053; 80061; 84443; 85025; G0103

== ENCOUNTER → 2021-07-13 10:29 | Outpatient (BNVA) | payer MEDICARE, MEDICAID, SELFPAY ==
[2020-10-23 13:26] VITALS: BP 120/74; BMI 40.5
== END ==
PROVIDERS: PCP Family Medicine; Visit Provider Psychiatry & Neurology Neurology
DX: R56.9 Unspecified convulsions (principal)
CPT/HCPCS: 80053; 80164; 85025

== ENCOUNTER → 2021-08-25 07:56 | Outpatient (BNVA) | payer MEDICARE, MEDICAID, SELFPAY ==
[2020-10-23 13:26] VITALS: BP 120/74; BMI 40.5
== END ==
PROVIDERS: PCP Family Medicine; Visit Provider Nurse Practitioner
DX: F43.12 Post-traumatic stress disorder, chronic (principal); F31.64 Bipolar disorder, current episode mixed, severe, with psychotic features
CPT/HCPCS: 99214

== ENCOUNTER 2022-02-12 16:11 | Emergency (ER) | payer MEDICARE, MEDICAID, SELFPAY ==
[2020-10-23 13:26] VITALS: BP 120/74; BMI 40.5
[2022-02-12 16:24] VITALS: PULSE 93; RESP 16; TEMP 36.6; O2SAT 100; BMI 36.1
--- NOTE | 2022-02-12 20:53 | CTR_ITS ---
PROCEDURE INFORMATION: Exam: CT Head Without Contrast Exam date and time: 02/12/2022 9:42 PM Age: 66 years old Clinical indication: Injury or trauma; Fall; Blunt trauma (contusions or hematomas); Prior surgery; Surgery type: Frontal skull; Patient HX: Patient fell at home today. C/O heat exhuastion. 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 TECHNIQUE: Imaging protocol: Computed tomography of the head without contrast. Radiation optimization: All CT scans at this facility use at least one of these dose optimization techniques: automated exposure control; mA and/or kV adjustment per patient size (includes targeted exams where dose is matched to clinical indication); or iterative reconstruction. COMPARISON: CT head wo con* [id number] 04/22/2020 9:05 AM RADIATION DOSE METRICS: Total DLP (mGy-cm): 874.42 FINDINGS: Brain: There is encephalomalacia in both frontal lobes from previous trauma or infection. No evidence of intracranial hemorrhage, mass effect, midline shift or extra-axial fluid collections. Midline structures are normal. Jacobson-white matter differentiation is normal. Cerebral ventricles: No ventriculomegaly. Paranasal sinuses: Mucosal thickening in the ethmoid and frontal sinuses. Mastoid air cells: Visualized mastoid air cells are well aerated. Bones/joints: There are old surgical changes and probable fractures of the left frontal and sphenoid bones and zygomatic arch which are unchanged. Soft tissues: Unremarkable. Vasculature: Carotid atherosclerotic calcification. CT/CT head wo con* [id number] IMPRESSION: No acute intracranial injury. Stable old surgical and traumatic changes in the frontal lobes and overlying cranium.
[2022-02-12] MEDS: sodium chloride 0.9% 1,000 ML 999 ML IV ×2 (21:10→21:58)
[2022-02-12 21:12] LABS: Basophils % 0.4 %; Eosinophils # 0.1 10^3/uL (0.0-0.8); Eosinophils % 1.7 %; Hematocrit 44.1 % (42.0-52.0); Hemoglobin 14.8 g/dL (11.7-16.6); Lymphocytes # 2.7 10^3/uL (0.8-4.8); Lymphocytes % 34.3 %; Mean Corpuscular HGB Conc 33.6 g/dL (30.0-36.0); Mean Corpuscular Hemoglobin 29.8 pg (28.0-34.0); Mean Corpuscular Volume 88.7 fl (80-94); Mean Platelet Volume 10.7 fL (7.4-10.4); Monocytes # 0.8 10^3/uL (0.2-0.9); Monocytes % 10.5 %; Neutrophils # 4.12 10^3/uL (1.8-7.7); Neutrophils % 52.8 %; Nucleated Red Blood Cells % 0 %; Platelet Count 223 10^3/cmm (130-400); Red Blood Count 4.97 10^6/uL (4.1-5.3); Red Cell Distribution Width 14.1 % (12.1-15.1); White Blood Count 7.8 10^3/uL (4.0-10.0)
--- NOTE | 2022-02-12 21:18 | ED_ITS ---
HPI - General Adult General: Chief complaint: Fall Stated complaint: POSS HEAT EXHAUSTION Time Seen by Provider: 02/12/22 20:53 History of Present Illness: [66]yo patient w/ hx of epilespy on valproic acid only BIBA to the ED with breakthrough episode of the seizure with unknown durat ion which occurred [id number]. The incident was witnessed not witnessed by anybody. Patient tells me that he was feeding his dog outside when he has had the episode of seizure. Patient reports that he was on the ground. He eventually called EMS. Patient tells me that he had mild shortness of breath after his seizure. Paitent denies any active chest pain, nausea/vomiting, diarrhea melena/hematochezia, or focal neurological deficit/ On arrival, the patient is AAOx3, GCS of 15 and answering all questions. The patient denies any associated chest pain, shortness of breath, palpitations, or any focal pain in the arms and legs. Patient tells me that he has occasional breakthrough seizure. He thinks that because he was outside this could be the cause of his seizure. Patient says that has been compliant with his valproic acid. Patient also has a history of schizophrenia and bipolar disorder. Patient tells me that he denies any suicidal ideation, homicidal ideation or active hallucination. Onset: 3pm today Duration: x1 episode Location: home Severity: moderate Associated symptoms: Deny chest pain, dyspnea, nausea, rash, palpitations or vomiting Review of Systems Const: Denies: fever(s) or chills Eyes: Denies: change in vision ENMT: Denies: mouth pain Card: Denies: chest pain or palpitations Resp: Denies: dyspnea or non-productive cough GI: Denies: abdominal pain, nausea, vomiting or diarrhea : Denies: dysuria Musc: Denies: extremity pain Skin/Breast: Denies: rash or new lesions Neuro: Reports: other (+seizure); Denies: weakness in extremities Psych: Reports: other (Normal mood) Cresencio/Lymph: Denies: easy bruising PFSH ED PFSH: Medical History Abdominal fibromatosis Benign prostatic hyperplasia without lower urinary tract symptoms Bipolar affective, mixed Bipolar disorder, current episode mixed, severe, with psychotic features Bipolar II disorder Bipolar II disorder Chronic pain of right knee Colonoscopy planned Complex partial epilepsy with generalization Decreased mobility and endurance Effusion, left hip Enrolled in chronic care management Erectile dysfunction Gastro-esophageal reflux disease without esophagitis Hepatitis C Left spastic hemiparesis Lobotomy syndrome Obstructive sleep apnea Obstructive sleep apnea (adult) (pediatric) Personal history of traumatic brain injury Post-traumatic stress disorder, chronic Primary osteoarthritis of right knee Psychiatric care Skin cancer, basal cell face Trimalleolar fracture of right ankle Urethral stricture Vitamin D deficiency Surgical History History of endoscopy History of esophagogastroduodenoscopy (EGD) History of left hip replacement History of rhinoplasty Hx of colonoscopy (~2016) negative; Dr Choi Status post left partial knee replacement Status post open reduction and internal fixation of fracture with nonunion LEFT FEMUR Status post right partial knee replacement Family History Mother Hypertension Cancer Father , age 75 Stroke Diabetes Alcoholism Hypertension Other Hypercholesteremia Social History Smoking and tobacco status: never smoked Second hand smoke exposure: No Alcohol intake: former Lives independently: Yes Household members: none Housing: House Marital status: Legally Current occupational status: disabled History of recent travel: No Current gender identity: Male Physical Exam Const: COMMON NORMALS: alert HENMT: COMMON NORMALS: atraumatic HEAD & SCALP: atraumatic MOUTH: moist mucous membranes not abnormal Eye: COMMON NORMALS: EOMs intact bilaterally and conjunctivae normal CONJUN CTIVA: Yes conjunctivae normal Neck/C-Spine: COMMON NORMALS: full ROM and supple Resp: COMMON NORMALS: normal respiratory effort and clear to auscultation bilaterally AUSCULTATION: clear to auscultation bilaterally Cardio: COMMON NORMALS: regular rate RATE: regular rate GI: COMMON NORMALS: Soft to palpation and non-tender PALPATION: Yes Soft to palpation Extremity: COMMON NORMALS: full ROM Neuro: SENSORIUM/ORIENTATION: Yes alert MOTOR EXAM: No Abnormal motor strength present and Other motor observations present (no focal motor deficits) OTHER: Mental status? Awake, alert, and oriented to self, year, month, location, and situation.? Following simple axial and appendicular commands.? Has appropriate fund of knowledge, comprehension, and insight.? Able to recall and understands pertinent aspects of medical history and current treatment status.? ? Language? Speech is fluent without word-finding difficulties.? Intact naming, expression, internal corrosion specialist, and repetition.? ? Cranial nerves? 2,3,4,6: PERRL, EOMI with no nystagmus. 5: Intact sensation to light touch, symmetric? 7: Smile symmetrical, no facial droop.? 8: Hearing grossly intact.? 9,10: Normal palate movement.? 11: Normal strength in trapezius bilaterally 12: Tongue protrudes midline.? ? Motor examination? Normal bulk & tone. Strength as follows (R/L): Delts (5/5), Biceps (5/5), Triceps (5/5), Wrist ext (5/5), hip flexors (5/5), plantarflexors (5/5), dorsiflexors (5/5). ? Sensation? Light Touch: Grossly intact and equal in upper and lower extremities bilaterally? Romberg: Negative.? Distal joint position sense intact ? Coordination? Olxcdc-kh-ieal-finger movements intact without dysmetria or past-pointing.? Rapid fingertaps: preserved amplitude without decriment.? No tremor, myoclonus or truncal ataxia.? ? Gait/stance? Steady, normal narrow base gait with appropriate arm swing and turning.? Tandem gait without hesitation or loss of balance. Psych: COMMON NORMALS: speech normal SPEECH: Yes normal speech MOOD & AFFECT: Yes euthymic mood Course Vital Signs: Vital signs: Vital Signs Temperature 97.9 F 02/12/22 16:24 Pulse Rate 93 02/12/22 16:24 Respiratory Rate 16 02/12/22 16:24 Pulse Oximetry 100 02/12/22 16:24 [facility] - General Adult Medical Decision Making []yo patient w/ known hx of seizure on valproid acid BIBA after an episode of seizure which occurred earlier today at 3pm. Back to baseline on arrival, AAOX3 with non-focal neuro exam. HDS. Exam revealed no focal trauma/deformity/bruises.The episode of seizure was witnessed and without any trauma/injury to the head. No immunosuppression hx and without preceding fever. No history of alcohol abuse or suspicion for toxin ingestion. Hx of prior seizure likely breakthrough seizure in the setting of medication change/non- compliance. H No lips/tongue lacerations. No visible bowel/bladder incontinence Airway protected. No drooling. Sats > 95%. Unlikely to be stroke, neurogenic syncope, acute delirium, intracranial tumor/mass, intracranial bleed, SAH/subdural hematoma/epidural hematoma, meningitis, or intracranial abscess, or from alcohol withdrawal. Workup: CBC, BMP, Magnesium, EKGx2 ,troponin x 2, CT head ED Interventions: 1g of keppra, PO challenge, serial reassessment EKG: No e/o STEMI. No evidence of Brugada?s sign, delta wave, epsilon wave, significantly prolonged QTc, or malignant arrhythmia. CT is negative for any acute findings. Lab findings: Electrolytes including K and Mg wnl. [11:00pm] On reassessment, patient back to baseline. In the ED, the patient received 1g of keppra in the ED. No other witnessed episodes of seizure while the patient was observed in the ED. Repeat neuro exam is non-focal. Patient takes valproicd acid. Patient tolerated PO in the ED and was able to ambulate without difficulties. Unlikely to be alternative causes of seizures since the patient has no hx of immunosuppression, no recent fevers, no recent abx/SVP RESEARCH AND STRATEGIC ANALYSIS diamond nt, no recent toxic exposure, no unilateral or focal weakness, or trauma. Rx keppra 500mg BID for seizures. I have given patient follow up with our case worker to be seen by our outpatient Neurology for breakthrough seizures. Patient aware of a call from our case worker to schedule for appointment(s) and verbalizes understanding of the importance of following up. Disposition: Discharge. Patient is given instruction for follow-up with PCP and Neurology in the next 24-48 hours. Given seizure precautions including no driving, swimming, or bathing until the patient is fully evaluated by ulisses chapman. Lab Data : 02/12/22 21:07 02/12/22 21:[address] 02/12/22 20:53 IMPRESSION: No acute intracranial injury. Stable old surgical and traumatic changes in the frontal lobes and overlying cranium. Laboratory Results WBC 7.8 10^3/uL (4.0-10.0) 02/12/22 21:07 RBC 4.97 10^6/uL (4.1-5.3) 02/12/22 21:07 Hgb 14.8 g/dL (11.7-16.6) 02/12/22 21:07 Hct 44.1 % (42.0-52.0) 02/12/22 21:07 MCV 88.7 fl (80-94) 02/12/22 21:07 MCH 29.8 pg (28.0-34.0) 02/12/22 21:07 MCHC 33.6 g/dL (30.0-36.0) 02/12/22 21:07 RDW 14.1 % (12.1-15.1) 02/12/22 21:07 Plt Count 223 10^3/cmm (130-400) 02/12/22 21:07 MPV 10.7 fL (7.4-10.4) H 02/12/22 21:07 Neut % (Auto) 52.8 % 02/12/22 21:07 Lymph % (Auto) 34.3 % 02/12/22 21:07 Throckmorton % (Auto) 10.5 % 02/12/22 21:07 Eos % (Auto) 1.7 % 02/12/22 21:07 Baso % (Auto) 0.4 % 02/12/22 21:07 Neut # (Auto) 4.12 10^3/uL (1.8-7.7) 02/12/22 21:07 Lymph # (Auto) 2.7 10^3/uL (0.8-4.8) 02/12/22 21:07 Throckmorton # (Auto) 0.8 10^3/uL (0.2-0.9) 02/12/22 21:07 Eos # (Auto) 0.1 10^3/uL (0.0-0.8) 02/12/22 21:07 Baso # (Auto) 0.0 10^3/uL (0.0-0.1) 02/12/22 21:07 Nucleated RBC % (auto) 0 % 02/12/22 21:07 Nucleated RBCs # 0.0 /100WBC 02/12/22 21:07 Sodium 138 mmol/L (136-145) 02/12/22 21:07 Potassium 3.4 mmol/L (3.5-5.1) L 02/12/22 21:07 Chloride 99 mmol/L (98-107) 02/12/22 21:07 Carbon Dioxide 30 mmol/L (22-29) H 02/12/22 21:07 Anion Gap 12.4 (5-19) 02/12/22 21:07 BUN 28 mg/dL (8-23) H 02/12/22 21:07 Creatinine 1.2 mg/dL (0.7-1.2) 02/12/22 21:07 GFR Calculation 61.0 mL/min (90-130) L 02/12/22 21:07 Glucose 93 mg/dL (65-115) 02/12/22 21:07 Calculated Osmolality 291 mOsm/kg (285-295) 02/12/22 21:07 Calcium 9.1 mg/dL (8.5-10.5) 02/12/22 21:07 Total Bilirubin 0.5 mg/dL (0.15-1.2) 02/12/22 21:07 AST 18 U/L (0-40) 02/12/22 21:07 ALT 12 U/L (0-41) 02/12/22 21:07 Alkaline Phosphatase 73 IU/L (40-130) 02/12/22 21:07 Total Protein 7.3 g/dL (6.6-8.7) 02/12/22 21:07 Albumin 4.5 g/dL (3.5-5.2) 02/12/22 21:07 Globulin 2.8 g/dL (1.3-4.6) 02/12/22 21:07 Lipase 29 U/L (13-60) 02/12/22 21:07 Valproic Acid 40.8 ug/mL (50-100) L 02/12/22 21:07 Imaging Data Other Imaging: Radiologist's impression: [address] [address] [address] Scan Report Signed Patient: Jd Gerber Unit #: [id number] : 1955 Age/Sex: 66 / M ADM Date: 02/12/22 Loc: ER Room/Bed: Attending Dr: Ordering Provider/Ordering MD: Anibal Brown MD Date of Service: 02/12/22 Procedure(s): CT head wo con* [id number] Accession Number(s): [id number] Report Number: [id number] PROCEDURE INFORMATION: Exam: CT Head Without Contrast Exam date and time: 02/12/2022 9:42 PM Age: 66 years old Clinical indication: Injury or trauma; Fall; Blunt trauma (contusions or hematomas); Prior surgery; Surgery type: Frontal skull; Patient HX: Patient fell at home today. C/O heat exhuastion. 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 TECHNIQUE: Imaging protocol: Computed tomography of the head without contrast. Radiation optimization: All CT scans at this facility use at least one of these dose optimization techniques: automated exposure control; mA and/or kV adjustment per patient size (includes targeted exams where dose is matched to clinical indication); or iterative reconstruction. COMPARISON: CT head wo con* [id number] 04/22/2020 9:05 AM RADIATION DOSE METRICS: Total DLP (mGy-cm): 874.42 FINDINGS: Brain: There is encephalomalacia in both frontal lobes from previous trauma or infection. No evidence of intracranial hemorrhage, mass effect, midline shift or extra-axial fluid collections. Midline structures are normal. Jacobson-white matter differentiation is normal. Cerebral ventricles: No ventriculomegaly. Paranasal sinuses: Mucosal thickening in the ethmoid and frontal sinuses. Mastoid air cells: Visualized mastoid air cells are well aerated. Bones/joints: There are old surgical changes and probable fractures of the left frontal and sphenoid bones and zygomatic arch which are unchanged. Soft tissues: Unremarkable. Vasculature: Carotid atherosclerotic calcification. CT/CT head wo con* [id number] IMPRESSION: No acute intracranial injury. Stable old surgical and traumatic changes in the frontal lobes and overlying cranium. ? Dictated By: Alberto Albright MD Signed By: Alberto Albright MD Signed Date/Time: 02/12/222243 DD/ 41 Discharge Plan Discharge Patient Disposition: Home Clinical Impression: Seizure, Fall Condition: Stable Prescriptions: New Keppra 500 mg tablet 500 mg PO BID 14 Days Qty: 28 0RF No Action testosterone 1.62 % (20.25 mg/1.25 gram) gel in packet 1 packet transdermal DAILY Qty: 37.5 3RF Rx Instructions: apply to max area of ONE upper arem and shoulder paliperidone [Invega] 6 mg tablet extended release 24hr 6 mg PO BID Qty: 60 1RF hydroxyzine HCl 25 mg tablet 50 mg PO BEDTIME PRN (Reason: sleep) Qty: 30 1RF escitalopram oxalate [Lexapro] 20 mg tablet 20 mg PO DAILY Qty: 30 1RF zolpidem 10 mg tablet 10 mg PO .qhs Qty: 30 2RF triamterene-hydrochlorothiazid 37.5-25 mg tablet See Rx Instructions .ROUTE .COMPLEX Qty: 30 2RF Dose Instruction: TAKE ONE TABLET BY MOUTH EVERY MORNING Rx Instructions: TAKE ONE TABLET BY MOUTH EVERY MORNING tamsulosin 0.4 mg capsule See Rx Instructions .ROUTE .COMPLEX Qty: 180 2RF Dose Instruction: TAKE ONE CAPSULE BY MOUTH TWICE DAILY Rx Instructions: TAKE ONE CAPSULE BY MOUTH TWICE DAILY pantoprazole 40 mg tablet,delayed release (DR/EC) See Rx Instructions .ROUTE .COMPLEX Qty: 90 0RF Dose Instruction: TAKE ONE TABLET BY MOUTH AT BEDTIME Rx Instructions: TAKE ONE TABLET BY MOUTH AT BEDTIME cholecalciferol (vitamin D3) 50 mcg (2,000 unit) tablet 2,000 unit PO DAILY Qty: 30 3RF albuterol sulfate [ProAir HFA] 90 mcg/actuation HFA aerosol inhaler 2 puff INHALATION Q6H PRN (Reason: bronchospasm) Qty: 8.5 2RF fluticasone propionate [Flonase Allergy Relief] 50 mcg/actuation spray,suspension 2 spray intranasal DAILY Qty: 16 2RF Rx Instructions: administer into each nostril docusate sodium 100 mg capsule See Rx Instructions .ROUTE .COMPLEX Qty: 120 0RF Dose Instruction: TAKE TWO CAPSULES BY MOUTH TWICE DAILY Rx Instructions: TAKE TWO CAPSULES BY MOUTH TWICE DAILY sildenafil 100 mg tablet See Rx Instructions .ROUTE .COMPLEX Qty: 30 2RF Dose Instruction: TAKE ONE TABLET BY MOUTH DAILY NEEDED FOR sexual activity administer 30 minutes TO FOUR hours BEFORE activity Rx Instructions: TAKE ONE TABLET BY MOUTH DAILY NEEDED FOR sexual activity administer 30 minutes TO FOUR hours BEFORE activity sucralfate 1 gram tablet See Rx Instructions .ROUTE .COMPLEX Qty: 120 2RF Dose Instruction: TAKE ONE TABLET BY MOUTH EVERY 6 HOURS Rx Instructions: TAKE ONE TABLET BY MOUTH EVERY 6 HOURS oxcarbazepine 600 mg tablet 900 mg PO BID 0RF Discharge Orders: Discharge ED (Routine); Ordered 02/12/22 Ordered By: Anibal Brown Referrals: Lay Lewis MD [Primary Care Provider] - Discharge Diet: Advance as tolerated Discharge Activity: Increase activity as tolerated Patient Instructions: Epilepsy (ED), Fall Prevention (ED) Activity Restrictions/Additional Instructions: Please come back to the emergency room for any more breakthrough episodes of seizure. Come back if any weakness in her arms, drooling, difficulty speaking, any neurological symptoms. Please do not swim bathe or drive a vehicle unattended. Our case worker will have you follow-up with Dr. Martin in the next few days. You would be expected to have a phone call with our case worker who will put you on the schedule. You can expect a call from us in the next 2-3 days. If you don't hear from us, call us back in the emergency room at [phone]. Coding Level of Care Code ED Pr Intern for Padilla Fwdeepa Exam Comprehensive
[2022-02-12 21:29] LABS: Alanine Aminotransferase 12 U/L (0-41); Albumin Level 4.5 g/dL (3.5-5.2); Alkaline Phosphatase 73 IU/L (40-130); Anion Gap 12.4 (5-19); Aspartate Amino Transferase 18 U/L (0-40); Blood Urea Nitrogen 28 mg/dL (8-23); Calcium 9.1 mg/dL (8.5-10.5); Carbon Dioxide 30 mmol/L (22-29); Chloride 99 mmol/L (98-107); Globulin 2.8 g/dL (1.3-4.6); Glucose 93 mg/dL (65-115); Lipase 29 U/L (13-60); Osmolality Calculated 291 mOsm/kg (285-295); Potassium 3.4 mmol/L (3.5-5.1); Sodium 138 mmol/L (136-145); Total Bilirubin 0.5 mg/dL (0.15-1.2); Total Protein 7.3 g/dL (6.6-8.7)
[2022-02-12 22:30] LABS: Valproic Acid Level 40.8 ug/mL (50-100)
--- NOTE | 2022-02-13 16:57 | PC.SOCIAL ---
Addendum entered by Yudith Cronin 02/24/22 15:28: academic affairs manager was told that patient he was seen by Dr. Martin in 2019. Clinic attempted to reach him at [phone] but he does not have a voicemail set up. Original Note: Neurology Follow Up Message sent to Dr. Martin's office, requesting follow up appointment. Clinic will call patient with appointment date/time.
[2022-02-17 08:14] LABS: Oxcarbazepine Metabolite <1.0 mcg/mL (8.0-35.0)
== END 2022-02-13 | disposition home or self-care (01) ==
PROVIDERS: Emergency Provider Emergency Medicine; PCP Family Medicine
DX: G40.909 Epilepsy, unspecified, not intractable, without status epilepticus (principal); Z86.19 Personal history of other infectious and parasitic diseases
CPT/HCPCS: 70450; 80053; 80164; 80183; 83690; 85025; 96365; 99284; J1953; J7030

== ENCOUNTER → 2022-02-15 08:26 | Outpatient (BNVA) | payer MEDICARE, MEDICAID, SELFPAY ==
[2020-10-23 13:26] VITALS: BP 120/74; BMI 40.5
== END ==
PROVIDERS: PCP Family Medicine; Visit Provider Nurse Practitioner
DX: F43.12 Post-traumatic stress disorder, chronic (principal); F31.64 Bipolar disorder, current episode mixed, severe, with psychotic features; F12.10 Cannabis abuse, uncomplicated
CPT/HCPCS: 99215

== ENCOUNTER 2023-12-27 09:47 | Inpatient (IN) | payer MEDICARE, MEDICAID, SELFPAY ==
[2023-10-31 15:43] VITALS: BP 120/74; BMI 40.5
[2023-12-27] VITALS (8 sets, daily range): BP systolic 100–130; BP diastolic 58–90; PULSE 71–88; RESP 16–20; TEMP 36.4–36.6; O2SAT 96–100
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
--- NOTE | 2023-12-27 09:54 | XR_ITS ---
WS: [id number] Right ankle, 2 views, 12/27/2023 Clinical Data: injury Comparison: Right ankle, 09/04/2019 Findings: There is an oblique fracture of the distal third of the right tibia. The internal fixation of the dis nathan right fibula remains the same. There are fragments inferior to the medial malleolus unchanged. Th ere is a plantar spur. There is soft tissue swelling over the tibial fracture site. There is a small metal fragment in the subcutaneous tissue adjacent to the tarsal navicular. XR/XR ankle RT 2V [id number] Impression: 1. Oblique fracture of distal right tibia. 2. Stable internal fixation of distal right fibular fracture.
[2023-12-27] MEDS: ondansetron 2 mg/ML SDV 2 mL 4 MG IVP (10:24)
[2023-12-27] MEDS: HYDROmorphone 1 mg/mL INJ 1 mL IVP ×2 (10:24→12:15)
--- NOTE | 2023-12-27 10:36 | PC.PHAR ---
Addendum entered by Sima Cruz 12/27/23 11:54: CURRENT MED LIST VERIFIED WITH PHARMACY FILL DATES. Original Note: PT STATES MEMORY IS BAD AND CAN'T REMEMBER MEDICATIONS. [facility] IS FAXING CURRENT MED LIST.
--- NOTE | 2023-12-27 11:35 | XR_ITS ---
WS: [email or web address] Portable AP semiupright chest, 12/27/2023 Clinical Data: fall Comparison: Portable chest, 10/01/2020 Findings: No nodules, masses or effusions are seen. The heart is normal. The pulmonary vascularity is not increased. No pneumonia or pneumothorax is seen. The aortic arch and descending thoracic aorta s how mild calcification and tortuosity. XR/XR chest 1V portable [id number] Impression: Atherosclerosis.
[2023-12-27 11:59] LABS: Basophils % 0.3 %; Eosinophils # 0.1 10^3/uL (0.0-0.8); Eosinophils % 1.5 %; Hematocrit 39.8 % (37-53); Lymphocytes # 1.9 10^3/uL (0.8-4.8); Lymphocytes % 19.4 %; Mean Corpuscular HGB Conc 32.7 g/dL (30-55); Mean Corpuscular Volume 94.8 fl (82-101); Mean Platelet Volume 10.7 fL (7.4-10.4); Monocytes # 0.8 10^3/uL (0.2-0.9); Monocytes % 8.8 %; Neutrophils % 69.7 %; Nucleated Red Blood Cells % 0 %; Platelet Count 163 10^3/cmm (157-399); Red Cell Distribution Width 12.9 % (12.1-15.1)
[2023-12-27 12:13] LABS: Alanine Aminotransferase 17 U/L (0-41); Albumin Level 3.4 g/dL (3.5-5.2); Alkaline Phosphatase 87 U/L (40-130); Blood Urea Nitrogen 20 mg/dL (8-23); Carbon Dioxide 25 mmol/L (22-29); Chloride 101 mmol/L (98-107); Creatinine Clr Calc Pharmacy 98.4209; Globulin 2.7 g/dL (1.3-4.6); Glomerular Filtration Rate 84.4 mL/min (90-130); Glucose 99 mg/dL (65-115); INR 1.03 (0.8-1.2); Osmolality Calculated 283 mOsm/kg (285-295); Sodium 135 mmol/L (136-145); Total Bilirubin 0.5 mg/dL (0.15-1.2); Total Protein 6.1 g/dL (6.6-8.7)
[2023-12-27 12:15] LABS: Anion Gap 13.3 (5-19); Aspartate Amino Transferase 24 U/L (0-40); Potassium 4.3 mmol/L (3.5-5.1)
--- NOTE | 2023-12-27 12:37 | ECG_ITS ---
[facility] Test Date: 2023-12-27 Pat Name: Jd Gerber Department: Room: 267 Gender: Male Assistant Administrator: : 1955 Requested By: Sonja Renae Order Number: [id number] Cami MD: Ty Hoff M.D. Measurements Intervals [place] Rate: 79 P: 26 MS: 160 QRS: 55 QRSD: 85 T: 51 QT: 396 QTc: 456 Interpretive Statements SINUS RHYTHM Compared to ECG 10/01/2020 11:57:34 No significant changes Electronically Signed On 12-27-2023 20:02:21 CDT by Ty Hoff M.D. [id number]
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
[2023-12-27 13:41] LABS: Valproic Acid Level 29.9 ug/mL (50-100)
[2023-12-27] MEDS: sodium chloride 0.9% 1,000 ML 30 ML IV (15:30)
--- NOTE | 2023-12-27 15:59 | P.ANESASSM_ITS ---
Pre-Anesthetic Assessment Height/Weight: Height 1.8 m Weight 102.512 kg Temp Pulse Resp BP Pulse Ox O2 Del Method 97.7 F 71 18 120/73 100 Room Air 12/27/23 14:05 12/27/23 14:05 12/27/23 14:05 12/27/23 14:05 12/27/23 14:05 12/27/23 14:05 Operation Date: 12/27/23 14:50 Proposed Procedures p IM Tibial Nail Insertion(Right) - Isidro Keane Caron, DO Familial anesthetic complications: None Was Beta Shar taken within 24 hours: N/A Was Clonidine taken within 24 hours: N/A Last intake: > 8hrs Social No alcohol and No tobacco Exam alert, oriented x 3, clear to auscultation bilaterally and regular rate & rhythm Airway Mallampati: Class II Dentition: other (no teeth) Pulmonary Sleep Apnea CV/HEM Hypertension Neuropsych Seizure Anesthetic Plan ASA status: 3 Anesthesia: General Risk of > 500 ml blood loss (7ml/kg in children): No Medications/Allergies Home Medications Medication Instructions Recorded Confirmed Last Taken Type aspirin 81 mg tablet,delayed 81 mg PO DAILY 06/16/22 12/27/23 12/26/23 History release cholecalciferol (vitamin D3) 50 2,000 unit PO DAILY #30 tabs 06/21/22 12/27/23 12/26/23 Rx mcg (2,000 unit) tablet albuterol sulfate 90 mcg/actuation See Rx Instructions .Route 01/20/23 12/27/23 Unknown Rx aerosol inhaler .COMPLEX #8.5 grams divalproex 500 mg tablet,delayed 500 mg PO BID #60 tabs 07/10/23 12/27/23 Unknown Rx release sildenafil 100 mg tablet See Rx Instructions .Route 11/24/23 12/27/23 Unknown Rx .COMPLEX #30 tabs docusate sodium 100 mg capsule 200 mg PO BID PRN Constipation 12/27/23 12/27/23 Unknown History hydrocodone 5 mg-acetaminophen 325 1 tab PO Q6H PRN pain #14 tabs 12/27/23 Unknown Rx mg tablet hydroxyzine HCl 25 mg tablet 25 mg PO BEDTIME PRN Sleep 12/27/23 12/27/23 12/26/23 History oxcarbazepine 600 mg tablet 900 mg PO BID 12/27/23 12/27/23 Unknown History pantoprazole 40 mg tablet,delayed 40 mg PO BEDTIME 12/27/23 12/27/23 12/26/23 History release sucralfate 1 gram tablet 1 g PO Q6H 12/27/23 12/27/23 12/26/23 History tamsulosin 0.4 mg capsule 0.4 mg PO BID 12/27/23 12/27/23 12/26/23 History triamterene 37.5 1 tab PO QAM 12/27/23 12/27/23 12/26/23 History mg-hydrochlorothiazide 25 mg tablet zolpidem 10 mg tablet 10 mg PO BEDTIME 12/27/23 12/27/23 Unknown History Allergies Allergy/AdvReac Type Severity Reaction Status Date / Time lurasidone [From Latuda] Allergy Unknown Unknown Verified 11/10/23 10:05 quetiapine [From Seroquel] Allergy Unknown Unknown Verified 11/10/23 10:05 INSECT STINGS Allergy Unknown Unknown Uncoded 11/10/23 10:05 Current Medications Generic Name Dose Route Start Last Admin Trade Name Freq PRN Reason Stop Dose Admin Sodium Chloride 1,000 mls @ 30 mls/hr 12/27/23 15:30 12/27/23 15:30 Sodium Chloride 0.9% IV 12/28/23 15:29 30 mls/hr .Q24H ADRIANA Administration PFSH Anesthesia Medical History (Updated 12/27/23 @ 12:52 by Aidan Jerez MD) Essential hypertension Cannabis abuse, uncomplicated Hepatitis C Lobotomy syndrome Effusion, left hip Colonoscopy planned Bipolar II disorder Erectile dysfunction Urethral stricture Vitamin D deficiency Decreased mobility and endurance Abdominal fibromatosis Skin cancer, basal cell face Gastro-esophageal reflux disease without esophagitis Left spastic hemiparesis Benign prostatic hyperplasia without lower urinary tract symptoms Obstructive sleep apnea Complex partial epilepsy with generalization Enrolled in chronic care management Bipolar II disorder Personal history of traumatic brain injury Obstructive sleep apnea (adult) (pediatric) Post-traumatic stress disorder, chronic Bipolar disorder, current episode mixed, severe, with psychotic features Bipolar affective, mixed Chronic pain of right knee Primary osteoarthritis of right knee Trimalleolar fracture of right ankle Surgical History History of left hip replacement History of esophagogastroduodenoscopy (EGD) History of endoscopy History of rhinoplasty Hx of colonoscopy (~2016) negative; Dr Choi Status post open reduction and internal fixation of fracture with nonunion LEFT FEMUR Status post right partial knee replacement Status post left partial knee replacement Family History Mother Hypertension Cancer Father , age 75 Stroke Diabetes Alcoholism Hypertension Other Hypercholesteremia Social History Smoking and tobacco/nicotine status: never used tobacco/nicotine Second hand smoke exposure: No Alcohol intake: former Substance/Drug Use: former Date of last use: Quit 2004 Lives independently: Yes Household members: none Housing: House Marital status: Legally Current occupational status: disabled Current gender identity: Male Data Anesthesia 12/27/23 11:48 12/27/23 11:48 Short CBC 12/27/23 Range/Units 11:48 WBC 9.60 (3.29-11.43) 10^3/uL Hgb 13.00 (11.27-16.99) g/dL Hct 39.8 (37-53) % MCV 94.8 (82-101) fl Plt Count 163 (157-399) 10^3/cmm Neut % (Auto) 69.7 % Neut # (Auto) 6.70 (1.8-7.7) 10^3/uL BMP 12/27/23 11:48 Sodium 135 L Potassium 4.3 Chloride 101 Carbon Dioxide 25 BUN 20 Creatinine 0.9 Glucose 99 Calcium 8.0 L Liver Function 12/27/23 Range/Units 11:48 Total Bilirubin 0.5 (0.15-1.2) mg/dL AST 24 (0-40) U/L ALT 17 (0-41) U/L Alkaline Phosphatase 87 (40-130) U/L Albumin 3.4 L (3.5-5.2) g/dL Coags 12/27/23 11:48 PT 13.80 INR 1.03 Cardiac Studies: 2 No Data to Display
--- NOTE | 2023-12-27 16:51 | SUR.PREOP ---
1636 patient surgery cancelled today and rescheduled for monday due to hole in operative tray and would take 2-3 hours before it would be done.iv fluids and ancef brought with patient back to room, asked charge nurse Perla if she wanted me to discard iv fluids and ancef and was told to just leave iv fluids and ancef
--- NOTE | 2023-12-27 17:51 | P.PN_ITS ---
Subjective 2 Subjective: Operating room did not have a clean tray available to do the surgery. At this point will also get the surgery to Dr. Tejada tomorrow if he has time. If not I will plan on doing it on Monday. Will keep the patient n.p.o. tonight just in case Dr. Grullon has time tomorrow. Vitals/I&O/Wt Last Vital Signs Temp 97.5 F L 12/27/23 16:49 Pulse 75 12/27/23 16:49 Resp 18 12/27/23 16:49 BP 117/63 12/27/23 16:49 Pulse Ox 97 12/27/23 16:49 O2 Del Method Room Air 12/27/23 16:49 Weight last 48 hrs Weight 226 lb Weight 226 lb Data 12/27/23 11:48 12/27/23 11:48 Attestations 2 Medical Necessity Statement*: Broken tibia Coding Level of Care Code Acute Code for Chg Fwd
[2023-12-27] MEDS: sodium chloride 0.9% 1,000 ML 75 ML IV (18:29)
[2023-12-27] MEDS: tamsulosin 0.4 mg Capsule 0.400000000000000022 MG PO (18:29)
[2023-12-27] MEDS: oxyCODONE 5 mg IR Tab/Cap PO (18:29)
[2023-12-27] MEDS: OXcarbazepine 300 mg Tablet 900 MG PO (18:29)
[2023-12-27] MEDS: divalproex DR 500 mg Tablet PO (18:29)
[2023-12-27] MEDS: pantoprazole DR 40 mg Tablet PO (21:22)
[2023-12-27] MEDS: zolpidem 5 mg Tablet 10 MG PO (21:22)
[2023-12-28] VITALS (17 sets, daily range): BP systolic 97–124; BP diastolic 63–84; PULSE 64–101; RESP 16–20; TEMP 36.2–37.2; O2SAT 91–98
[2023-12-28] MEDS: hyDROXYzine 25 mg Capsule PO (01:13)
[2023-12-28] MEDS: sodium chloride 0.9% 1,000 ML 75 ML IV (03:43)
[2023-12-28] MEDS: oxyCODONE 5 mg IR Tab/Cap PO (04:52)
[2023-12-28 06:04] LABS: Basophils % 0.7 %; Eosinophils # 0.3 10^3/uL (0.0-0.8); Eosinophils % 4.3 %; Hematocrit 36.5 % (37-53); Lymphocytes # 1.9 10^3/uL (0.8-4.8); Lymphocytes % 32.4 %; Mean Corpuscular HGB Conc 32.6 g/dL (30-55); Mean Corpuscular Hemoglobin 31.2 pg (27-33); Mean Corpuscular Volume 95.5 fl (82-101); Mean Platelet Volume 10.6 fL (7.4-10.4); Monocytes # 0.8 10^3/uL (0.2-0.9); Monocytes % 13.2 %; Neutrophils # 2.87 10^3/uL (1.8-7.7); Neutrophils % 49.1 %; Nucleated Red Blood Cells % 0 %; Platelet Count 165 10^3/cmm (157-399); Red Blood Count 3.82 10^6/uL (3.85-5.65); Red Cell Distribution Width 13.2 % (12.1-15.1); White Blood Count 5.84 10^3/uL (3.29-11.43)
[2023-12-28 06:19] LABS: Alanine Aminotransferase 13 U/L (0-41); Albumin Level 3.2 g/dL (3.5-5.2); Alkaline Phosphatase 86 U/L (40-130); Anion Gap 10.8 (5-19); Aspartate Amino Transferase 19 U/L (0-40); Blood Urea Nitrogen 16 mg/dL (8-23); Calcium 7.9 mg/dL (8.5-10.5); Carbon Dioxide 26 mmol/L (22-29); Chloride 106 mmol/L (98-107); Creatinine Clr Calc Pharmacy 113.3896; Globulin 2.4 g/dL (1.3-4.6); Glomerular Filtration Rate 96.7 mL/min (90-130); Glucose 111 mg/dL (65-115); Magnesium 2.2 mg/dL (1.7-2.3); Osmolality Calculated 288 mOsm/kg (285-295); Potassium 4.8 mmol/L (3.5-5.1); Sodium 138 mmol/L (136-145); Total Bilirubin 0.4 mg/dL (0.15-1.2); Total Protein 5.6 g/dL (6.6-8.7)
--- NOTE | 2023-12-28 06:58 | XR_ITS ---
WS: [id number] Right knee, AP and lateral views, 12/28/2023 Clinical Data: right tib fx Comparison: Right knee, 06/24/2021 Findings: There is a lateral knee joint hemiarthroplasty. The medial joint compartment shows narrowing and spur ring of the medial femoral condyle and medial tibial plateau. The posterior right patella shows irreg ularity. There is a comminuted fracture of the proximal right fibula. There is a metal fragment in the medial subcutaneous tissue of the proximal right leg unchanged. XR/XR knee RT 1-2V [id number] Impression: 1. Comminuted fracture of proximal right fibula. 2. Intact right knee lateral hemiarthroplasty. 3. Moderate osteoarthritis of the medial joint compartment of the right knee. Kellgren-Ronny Classification: grade 3 (moderate): moderate multiple osteoph ytes, definite narrowing of joint space and some sclerosis and possible deformi ty of bone ends of the medial joint compartment
--- NOTE | 2023-12-28 06:58 | XR_ITS ---
WS: [id number] Right leg including the tibia and fibula, AP and lateral views, 12/28/2023 Clinical Data: right tib fx Comparison: None. Findings: There is a comminuted fracture of the distal right tibia. There is a comminuted fracture of the proxi mal right fibula. There is internal fixation of an old distal right fibular fracture. There is a late ral hemiarthroplasty of the right knee. There is a fiberglass cast about the distal right leg, ankle and foot. There is a small metal fragment in the medial posterior subcutaneous tissue of the proximal right leg . XR/XR tibia fibula RT 2V [id number] Impression: 1. Fractures of distal right tibia and proximal right fibula. 2. Internal fixation of old right distal fibular fracture. 3. Lateral hemiarthroplasty of the right knee.
--- NOTE | 2023-12-28 06:58 | CT_ITS ---
WS: [id number] CT RIGHT LOWER EXTREMITY WITHOUT CONTRAST. HISTORY: right tib fx, r/o posterior mal Technique: All CT scans at [facility] [place] use at least one of these dose optimization techniques: automated exposure control; mA and/or kV adjustment per patient size (includes targeted exams where dose is matched to clinical indication); or iterative reconstruction. DLP: 812.81 mGy.cm COMPARISON: Radiograph 12/28/2023 Tibia: Oblique fracture distal third of the tibia with anterior displacement by 8 mm. There are a few small osseous fragments along the fracture line. Osseous fusion involving the distal tibiofibular ar ticulation. Fibula: Acute, nonhealed oblique fracture posteriorly displaced by 4 mm involving the proximal third of the fibula. There are few small osseous fragments. Distal fibular plate and screws are identified. Healed fracture distally. Prior hemiarthroplasty lateral knee joint. There is a small suprapatellar joint effusion. No acute fr acture of the knee. There is mild to moderate tricompartment osteoarthritis. Tibiotalar joint is narr owed. There are several small well circumscribed osseous fragments of bone medially. CT/CT lower leg RT wo con* [id number] IMPRESSION: 1. Oblique fracture of the distal third of the tibia with anterior displacement by 8 mm. 2. Oblique fracture proximal third of the fibula with 4 mm displacement. 3. Remote RIGHT knee lateral hemiarthroplasty. Plate and screw fixation distal fibula appears intact. There is an associated o sseous fusion between the distal tibia and fibula.
[2023-12-28] MEDS: aspirin 81 mg EC Tablet PO (07:28)
[2023-12-28] MEDS: divalproex DR 500 mg Tablet PO ×2 (07:28→17:04)
[2023-12-28] MEDS: tamsulosin 0.4 mg Capsule 0.400000000000000022 MG PO ×2 (07:28→17:04)
[2023-12-28] MEDS: OXcarbazepine 300 mg Tablet 900 MG PO ×2 (07:29→17:04)
[2023-12-28] MEDS: morphine 4 mg/mL SDV 1 mL 2 MG IVP (07:29)
--- NOTE | 2023-12-28 08:12 | P.PN_ITS ---
Documented by User: MAURY Santos STDAMELIA 12/28/23 08:19 Subjective 2 Subjective: Mr. Miles reports that he is doing well today, apart from the pain in his right leg. He has had a difficult night sleeping, but this is normal for him because he reports he is restless and anxious most of the time. He is aware of his plan, he will be most likely going to surgery today. No other concerns, no acute events overnight. Medications: Reviewed: Yes Vitals/I&O/Wt Last Vital Signs Temp 98.9 F 12/28/23 08:06 Pulse 69 12/28/23 08:06 Resp 17 12/28/23 08:06 BP 115/69 12/28/23 08:06 Pulse Ox 98 12/28/23 08:06 O2 Del Method Room Air 12/28/23 08:06 12/27/23 12/28/23 12/28/23 22:59 06:59 14:59 Intake Total 1130 / 1130 692.5 / 1822.5 Output Total 700 / 700 350 / 1050 Balance 430 / 430 342.5 / 772.5 Weight last 48 hrs Weight 237 lb 7 oz Weight 226 lb Weight 226 lb Physical Exam 2 Narrative: General: Comfortable appearing male sleeping in bed, alert and oriented, conversing appropriately. HEENT: Head shows some prior surgery scarring, with irregular symmetry. Right pupil > left, but round and reactive to light. Neck supple no thyromegaly noted. CV: Regular rate and rhythm, S1-S2 noted, no murmurs or gallops noted Pulm: Clear to auscultation bilaterally GI: Abdomen soft, nontender, bowel sounds active in all quadrants. : Deferred?no patient complaints Extremities: Right leg in splint, wrapped in Darrell wrap. Distal capillary refill intact, distal sensation intact, patient able to move toes. Data 12/28/23 05:16 12/28/23 05:16 Other Labs: EKG per my evaluation demonstrates normal sinus rhythm, normal axis, no acute changes Calcium 8.0, albumin 3.4 LFTs normal X-ray which I reviewed demonstrated postsurgical right fibula, and a fracture of the right tibia distally Chest x-ray which I reviewed demonstrates no infiltrate. Some atherosclerosis is noted. A&P Assessment and plan (1) Closed fracture of distal end of right tibia: Patient with right tibia fracture. Orthopedics indicates that should be fixed today N.p.o. Pain control Orthopedic consultation appreciated, they will be taking him to surgery sometime today. Bedrest currently Fall precautions No other obvious injuries Qualifiers: Encounter type: initial encounter Fracture morphology: unspecified fracture morphology Qualified Code(s): S82.301A - Unspecified fracture of lower end of right tibia, initial encounter for closed fracture (2) Seizures: Patient with history of seizures. Reports his last seizure was around the third because he did not take his medication. Continue his current medication. Continue seizure precautions Valproic acid: 29.9 Oxcarbazepine: Pending (3) Essential hypertension: Monitor blood pressure Hold diuretics currently as he is directly preoperative Plan Multiple other medical problems as outlined in his past medical history Full code SCD on leg it can be applied on. No anticoagulation currently is contraindicated as he is going to surgery within the next hour or so. DVT prophylaxis can be readdressed by surgeon following surgery. No direct contraindications for surgery from a medical standpoint. He has good exercise tolerance, reporting his ability to do over 2 METS of activity without chest discomfort or stopping to rest. Attestations 2 Medical Necessity Statement*: Broken tibia Coding Level of Care Code 61877 Diagnoses Closed fracture of distal end of right tibia S82.301A Encounter type: initial encounter Fracture morphology: unspecified fracture morphology Seizures R56.9 Essential hypertension I10 Time Spent (min) 22 Documented by User: Aidan Jerez MD 12/28/23 08:38 Data 12/28/23 05:16 12/28/23 05:16 A&P Assessment and plan (1) Closed fracture of distal end of right tibia: Patient with right tibia fracture. Orthopedics indicates that should be fixed today N.p.o. Pain control Orthopedic consultation appreciated, they will be taking him to surgery sometime today. Bedrest currently Fall precautions No other obvious injuries Colace added as he is on narcotic Qualifiers: Encounter type: initial encounter Fracture morphology: unspecified fracture morphology Qualified Code(s): S82.301A - Unspecified fracture of lower end of right tibia, initial encounter for closed fracture (2) Seizures: (3) Essential hypertension: Plan Drug use, methamphetamine, reported by nurse. Monitor for any withdrawal. Multiple other medical problems as outlined in his past medical history Full code Heparin for DVT prophylaxis No direct contraindications for surgery from a medical standpoint. He has good exercise tolerance, reporting his ability to do over 2 METS of activity without chest discomfort or stopping to rest. Attestations 2 Medical Necessity Statement*: Needs continued hospitalization, and for definitive treatment of his tibia fracture with surgery. Diagnoses Closed fracture of distal end of right tibia S82.301A Encounter type: initial encounter Fracture morphology: unspecified fracture morphology Seizures R56.9 Essential hypertension I10 Time Spent (min) 22
[2023-12-28] MEDS: docusate sodium 100 mg Capsule PO ×2 (08:15→17:05)
--- NOTE | 2023-12-28 10:25 | P.PN_ITS ---
Subjective 2 Subjective: Patient is going to get surgery with Dr. Tejada today for his tibial nail. Vitals/I&O/Wt Last Vital Signs Temp 98.9 F 12/28/23 08:06 Pulse 69 12/28/23 08:06 Resp 17 12/28/23 08:06 BP 115/69 12/28/23 08:06 Pulse Ox 98 12/28/23 08:06 O2 Del Method Room Air 12/28/23 08:06 12/27/23 12/28/23 12/28/23 22:59 06:59 14:59 Intake Total 1130 / 1130 692.5 / 1822.5 Output Total 700 / 700 350 / 1050 Balance 430 / 430 342.5 / 772.5 Weight last 48 hrs Weight 237 lb 7 oz Weight 226 lb Weight 226 lb Data 12/28/23 05:16 12/28/23 05:16 Attestations 2 Medical Necessity Statement*: Broken tibia Coding Level of Care Code Acute Code for [facility] Fwdeepa
[2023-12-28] MEDS: sodium chloride 0.9% 1,000 ML 30 ML IV (11:20)
[2023-12-28] MEDS: acetaminophen 1,000 MG/100 ML PIGGYBACK 400 MG IV (11:22)
[2023-12-28] MEDS: ketorolac 30 mg/mL INJ IVP (11:25)
--- NOTE | 2023-12-28 11:32 | PM.CONSULT ---
Providers/Reason For Consult Consulting Physician/Specialty*: Karlos Tejada DO/orthopedic surgery Reason for Consult*: Right distal third tibial shaft fracture with associated proximal fibula fracture Requesting Physician: Dr. Dr. Prado Attending Physician: Aidan Jerez MD Primary Care Provider: Lay Lewis MD History of Present Illness History of Present Illness Jd Gerber is a 68 year old male sustained a fall at home and was found to have significant pain and unable to bear weight to the right lower extremity brought to emergency department yesterday and was found to have a distal third tibial shaft fracture with associated proximal fibula fracture. Originally was going to be treated by Dr. Dr. Prado my partner who had seen evaluated patient however there was issues with their being a hole in the tray requiring full sterilization as result this case was canceled and Dr. Dr. Prado asked me if I had any time today and as a result agreed to assume the care of this patient Spoke with patient about proceeding with right tibial intramedullary nail. Review of his history denies any fevers chills chest pain or shortness of breath nausea or vomiting. Denies any issues with his heart or lungs. He denies being on any blood thinners besides a baby aspirin. Patient's been n.p.o. since midnight. Review of Systems General: Reports: 10 or more systems reviewed and unremarkable except in HPI and below Medications/Allergies Home Medications Medication Instructions Recorded Confirmed Last Taken Type aspirin 81 mg tablet,delayed 81 mg PO DAILY 06/16/22 12/27/23 12/26/23 History release cholecalciferol (vitamin D3) 50 2,000 unit PO DAILY #30 tabs 06/21/22 12/27/23 12/26/23 Rx mcg (2,000 unit) tablet albuterol sulfate 90 mcg/actuation See Rx Instructions .Route 01/20/23 12/27/23 Unknown Rx aerosol inhaler .COMPLEX #8.5 grams divalproex 500 mg tablet,delayed 500 mg PO BID #60 tabs 07/10/23 12/27/23 Unknown Rx release sildenafil 100 mg tablet See Rx Instructions .Route 11/24/23 12/27/23 Unknown Rx .COMPLEX #30 tabs docusate sodium 100 mg capsule 200 mg PO BID PRN Constipation 12/27/23 12/27/23 Unknown History hydrocodone 5 mg-acetaminophen 325 1 tab PO Q6H PRN pain #14 tabs 12/27/23 Unknown Rx mg tablet hydroxyzine HCl 25 mg tablet 25 mg PO BEDTIME PRN Sleep 12/27/23 12/27/23 12/26/23 History oxcarbazepine 600 mg tablet 900 mg PO BID 12/27/23 12/27/23 Unknown History pantoprazole 40 mg tablet,delayed 40 mg PO BEDTIME 12/27/23 12/27/23 12/26/23 History release sucralfate 1 gram tablet 1 g PO Q6H 12/27/23 12/27/23 12/26/23 History tamsulosin 0.4 mg capsule 0.4 mg PO BID 12/27/23 12/27/23 12/26/23 History triamterene 37.5 1 tab PO QAM 12/27/23 12/27/23 12/26/23 History mg-hydrochlorothiazide 25 mg tablet zolpidem 10 mg tablet 10 mg PO BEDTIME 12/27/23 12/27/23 Unknown History Allergies Allergy/AdvReac Type Severity Reaction Status Date / Time lurasidone [From Latuda] Allergy Unknown Unknown Verified 11/10/23 10:05 quetiapine [From Seroquel] Allergy Unknown Unknown Verified 11/10/23 10:05 INSECT STINGS Allergy Unknown Unknown Uncoded 11/10/23 10:05 Current Medications Generic Name Dose Route Start Last Admin Trade Name Freq PRN Reason Stop Dose Admin Aspirin 81 mg 12/28/23 09:00 12/28/23 07:28 Aspirin 81 Mg Ec Tablet PO 81 mg DAILY ADRIANA Administration Divalproex Sodium 500 mg 12/27/23 18:00 12/28/23 07:[address] 500 Mg Tablet PO 500 mg BID ADRIANA Administration Docusate Sodium 100 mg 12/28/23 09:00 12/28/23 08:15 Docusate Sodium 100 Mg Capsule PO 100 mg BID ADRIANA Administration Heparin Sodium (Porcine) 5,000 unit 12/27/23 18:00 12/28/23 03:44 Heparin 5,000 Unit/Ml Inj 1 Ml SUBCUT Not Given Q12H ADRIANA Sodium Chloride 1,000 mls @ 75 mls/hr 12/27/23 13:38 12/28/23 03:43 Sodium Chloride 0.9% IV 75 mls/hr .[id number] ADRIANA Administration Sodium Chloride 1,000 mls @ 30 mls/hr 12/27/23 15:30 12/27/23 15:30 Sodium Chloride 0.9% IV 12/28/23 15:29 30 mls/hr .Q24H ADRIANA Administration Sodium Chloride 1,000 mls @ 30 mls/hr 12/28/23 11:15 12/28/23 11:20 Sodium Chloride 0.9% IV 12/29/23 11:14 30 mls/hr .Q24H ADRIANA Administration Morphine Sulfate 2 mg 12/27/23 13:38 12/28/23 07:29 Morphine 4 Mg/Ml Sdv 1 Ml IVP 2 mg Q4H PRN Administration SEVERE PAIN Oxcarbazepine 900 mg 12/27/23 18:00 12/28/23 07:29 Oxcarbazepine 300 Mg Tablet PO 900 mg BID ADRIANA Administration Oxycodone HCl 5 mg 12/27/23 13:38 12/28/23 04:52 Oxycodone 5 Mg Ir Tab/Cap PO 5 mg Q6H PRN Administration SEVERE PAIN Pantoprazole Sodium 40 mg 12/27/23 21:00 12/27/23 21:[address] 40 Mg Tablet PO 40 mg BEDTIME ADRIANA Administration Tamsulosin HCl 0.4 mg 12/27/23 18:00 12/28/23 07:28 Tamsulosin 0.4 Mg Capsule PO 0.4 mg BID ADRIANA Administration Zolpidem Tartrate 10 mg 12/27/23 21:00 12/27/23 21:22 Zolpidem 5 Mg Tablet PO 10 mg BEDTIME ADRIANA Administration PFSH Acute PFSH: Medical History (Updated 12/28/23 @ 11:37 by Karlos Tejada DO) Essential hypertension Cannabis abuse, uncomplicated Hepatitis C Lobotomy syndrome Effusion, left hip Colonoscopy planned Bipolar II disorder Erectile dysfunction Urethral stricture Vitamin D deficiency Decreased mobility and endurance Abdominal fibromatosis Skin cancer, basal cell face Gastro-esophageal reflux disease without esophagitis Left spastic hemiparesis Benign prostatic hyperplasia without lower urinary tract symptoms Obstructive sleep apnea Complex partial epilepsy with generalization Enrolled in chronic care management Bipolar II disorder Personal history of traumatic brain injury Obstructive sleep apnea (adult) (pediatric) Post-traumatic stress disorder, chronic Bipolar disorder, current episode mixed, severe, with psychotic features Bipolar affective, mixed Chronic pain of right knee Primary osteoarthritis of right knee Trimalleolar fracture of right ankle Surgical History History of left hip replacement History of esophagogastroduodenoscopy (EGD) History of endoscopy History of rhinoplasty Hx of colonoscopy (~2015) negative; Dr Choi Status post open reduction and internal fixation of fracture with nonunion LEFT FEMUR Status post right partial knee replacement Status post left partial knee replacement Family History Mother Hypertension Cancer Father , age 75 Stroke Diabetes Alcoholism Hypertension Other Hypercholesteremia Social History Smoking and tobacco/nicotine status: never used tobacco/nicotine Second hand smoke exposure: No Alcohol intake: former Substance/Drug Use: former Date of last use: Quit 2004 Lives independently: Yes Household members: none Housing: House Marital status: Legally Current occupational status: disabled Current gender identity: Male Vitals/I&O/Wt Last Vital Signs Temp 97.2 F L 12/28/23 11:08 Pulse 77 12/28/23 11:08 Resp 18 12/28/23 11:08 BP 97/84 12/28/23 11:08 Pulse Ox 98 12/28/23 11:08 O2 Del Method Room Air 12/28/23 11:08 12/27/23 12/28/23 12/28/23 22:59 06:59 14:59 Intake Total 1130 / 1130 692.5 / 1822.5 Output Total 700 / 700 350 / 1050 Balance 430 / 430 342.5 / 772.5 Weight last 48 hrs Weight 237 lb 7 oz Weight 226 lb Weight 226 lb Physical Exam Narrative: Examination is limited secondary to patient having knee short leg AO splint to the right lower extremity limiting full detailed orthopedic examination. However patient has no tenderness to palpation at the knee tenderness palpation at the proximal fibula through this point as well as tenderness to palpation distally at the tibial shaft fracture. His toes are pointing roughly 90 degrees from his kneecap consistent with malrotation splints in place is clean dry and intact. Distal pulses are able to be palpated at the DP and are palpable 2+. Toes warm well-perfused brisk cap refill less than 2 seconds he does endorse sensation tact light touch to the superficial and deep peroneal nerve distribution rest of the sensory and motor examination is limited due to the splint he is able to wiggle the toes. Previous surgical incision site at the midline of the knee for patient's partial knee replacement Data 12/28/23 05:16 12/28/23 05:16 Xray Ortho: Radiologist's impression: XR/XR tibia fibula RT 2V [id number] Impression: 1. Fractures of distal right tibia and proximal right fibula. 2. Internal fixation of old right distal fibular fracture. 3. Lateral hemiarthroplasty of the right knee. Other CT: Radiologist's impression: CT/CT lower leg RT wo con* [id number] IMPRESSION: 1. Oblique fracture of the distal third of the tibia with anterior displacement by 8 mm. 2. Oblique fracture proximal third of the fibula with 4 mm displacement. 3. Remote RIGHT knee lateral hemiarthroplasty. Plate and screw fixation distal fibula appears intact. There is an associated osseous fusion between the distal tibia and fibula. A&P Assessment and plan (1) Closed fracture of distal end of right tibia: Qualifiers: Encounter type: initial encounter Fracture morphology: unspecified fracture morphology Qualified Code(s): S82.301A - Unspecified fracture of lower end of right tibia, initial encounter for closed fracture (2) Right knee pain: (3) Fracture of proximal end of fibula: Plan splint on in place clean dry and intact pain control Nonweightbearing right lower extremity Elevation and ice as needed PT/OT Hold a.m. anticoagulation N.p.o. since midnight X-rays and CT scans reviewed demonstrate distal third tibial shaft fracture with associated proximal fibula fracture. Previous hardware is intact to the knee as well as to the distal fibula Plan to proceed to the OR today for right tibia infrapatellar intramedullary nail MDM: Patient is a pleasant 68-year-old gentleman sustained a fall at home where he lives by himself and does sometimes have to utilize a cane for walking and found to have a distal third tibia fracture with associated proximal fibula fracture he has previous hardware in his ankle that is all well-healed no signs of loosening and does have appears to be osseous fusion of the distal tibiofibular articulation. Proximally has a lateral unicompartmental knee replacement which appears to be stable and amendable for possibly a nail fixation around this implant. My partner originally had seen patient evaluated unfortunately there was issues with a hole being in the tray and case cannot be performed yesterday as result he has been n.p.o. since midnight and was asked by my partner I had time I be able this point in time that excepted care for this patient will take care of the distal third tibia fracture. We talked about his treatment options in detail as far as nonoperative and operative invention. At this point time my recommendation would be for surgical intervention given his already significant deformity as well as for earlier mobilization and pain control. He understands the ins and outs of procedure the risk benefits complication alternatives of surgery. Risk of surge include not limited to make a better make it worse malunion, nonunion hardware failure, infection, wound issues, persistent pain. Understanding risk of surgery elects proceed all questions been answered at this time. We did talk about the proximal fibula fracture and plan will be to treat this nonoperatively which she understands and agrees to proceed with this all questions answered at this time. Plan will be to use an infrapatellar approach to miss the previous partial knee replacement. Consult Attestations Medical Necessity Statement: Treatment for right distal third tibial shaft fracture and proximal fibula fracture Coding Level of Care Code Acute Code for [facility] Fw Diagnoses Closed fracture of distal end of right tibia S82.301A Encounter type: initial encounter Fracture morphology: unspecified fracture morphology Right knee pain M25.561 Fracture of proximal end of fibula S82.839A Time Spent (min) 35
--- NOTE | 2023-12-28 11:46 | W.PM.OPSUD ---
Surgery/Procedure H&P Update DATE OF PROCEDURE: December 28, 2023 DATE H&P PERFORMED: 12/28/23 H&P UPDATE INFORMATION: I have reviewed H&P completed within last 30 days, I have examined patient prior to procedure and No changes to prior documentation PREOP DIAGNOSIS: Right tibial fracture PRIMARY INDICATION FOR PROCEDURE: Right distal tibia fracture with associated proximal fibula fracture PLANNED PROCEDURE: Operation Date: 12/27/23 14:50 Proposed Procedures p IM Tibial Nail Insertion Infrapatellar(Right) - Karlos Tejada DO Operation Date: 12/28/23 11:30 Proposed Procedures p IM Tibial Nail Insertion(Right) - Karlos Tejada DO
[2023-12-28] MEDS: ceFAZolin 2,000 MG in sodium chloride 0.9% (plus) 50 ML 100 MG IV ×2 (11:48→19:48)
--- NOTE | 2023-12-28 12:00 | XR_ITS ---
WS: [id number] Right leg including the tibia and fibula, C-arm fluoroscopy views, 12/28/2023 Clinical Data: OR PICS; ORIF RT TIBFIB Comparison: Right leg, 12/28/2023 Findings: The fracture of the distal third of the right tibia is repaired with a long intramedullary alison fixed with distal and proximal screws. XR/XR tibia fibula RT 2V [id number] Impression: Internal fixation of distal right tibial fracture.
--- NOTE | 2023-12-28 14:31 | W.PM.BPON ---
Date of Procedure: [12/28/2023] Surgeon: Karlos Tejada DO Roll Table Operator(s): RITCHIE Santiago Procedure(s) performed: Right tibia infrapatellar intramedullary nail Closed treatment right proximal fibula fracture?short leg splint application Findings of the procedure(s): Patient found to have a right distal third tibial shaft fracture with associated right proximal fibula fracture. Was able to achieve satisfactory reduction with [id number] reduction clamps. Patient then subsequently underwent a right tibia infra patellar intramedullary nail underwent this procedure without issues or complications plan is for closed treatment of the right proximal fibula fracture and placed in a short leg splint at this point in time. Patient taken to PACU in stable condition will be admitted to the floor postoperatively. Estimated blood loss: 150 mL Specimen(s) removed: None Post-operative diagnosis: Right distal third tibia shaft fracture and associated right proximal fibula fracture
--- NOTE | 2023-12-28 14:34 | P.OP_ITS ---
Operative Report Date of procedure: December 28, 2023 Pre-op diagnosis: Right distal third tibia shaft fracture Right proximal fibula fracture Post-op diagnosis: Same Procedure done: Right tibia infrapatellar intramedullary nail Implants: 12 mm x 375 mm tibial T2 alpha nail Woodbridge Woodbridge 2.5 mm DBM putty Woodbridge 5 mm locking screws 45, 50, 40, 47.5, 45 mm [place] +5 mm tibia end cap Surgeon: Karlos Tejada DO Cloth Winder Machine Operator: RITCHIE Santiago?FA was necessary for assistance in this case with leg positioning retraction and protection of neurovascular structures as well as assistance in holding reduction as well as assist with implant/fixation wound closure and dressing application. Anesthesia: General Estimated blood loss (mL): 150 none IV fluids: 800 mL Complications: None Findings: See operative report narrative Condition: stable Disposition: floor Brief History: Patient seen and fall and found to have a right distal third tibia fracture with a concomitant proximal fibula fracture. Originally was consulted by my partner but unable to get fixed the day he was operating due to issues with a hole in her tray and as result he asked if I would be able to take care of it next day which now are day. As result we had OR time and patient was agreeable to allow me to resume his care. We reviewed his radiographic findings and at this point time he has a distal third tibia fracture and a proximal fibula fracture he has previous hardware at the knee of the lateral partial knee replacement which appears to be stable and could be amenable to a infrapatellar tibial nail and his distal fibula is found to have an osseous union of the syndesmosis with no evidence of hardware failure of the distal fibula ORIF that a previously been performed. He has no posterior malleolus involvement. At this point time would be amenable for a right tibia infrapatellar intramedullary nail we talked about treatment options in detail and through shared decision-making elects proceed with surgical intervention this will allow for 1 improved alignment with increased chance of healing as well as for earlier mobilization and pain control. He understands his risks with surgery and elects proceed all questions answered at this time. Procedure: Patient seen eval in the preoperative holding area. Consent was reviewed and signed with patient correct extremity was then marked. Patient was then seen evaluated anesthesia once cleared by anesthesia was taken back to the operative suite. Patient was then transported on the flattop Benji table underwent anesthesia per the anesthesia part was properly anesthetized all bony prominences well-padded patient appropriate secured to the bed a ipsilateral hip bump was placed on the right lower extremity. The right lower extremity had a nonsterile tourniquet applied to the right thigh. We then subsequently prepped and draped the right lower extremity in standard orthopedic fashion. Final timeout performed. Patient received appropriate preoperative antibiotics. No tourniquet was insufflated during this case Started off by bring in fluoroscopic imaging. Given patient had previous partial knee replacement we brought in the C arm and utilized a radiolucent triangles to obtain imaging. Utilize C arm or and subsequently evaluated the fracture pattern. At this point in time this was found to have a spiral distal third tibia fracture. Tried to manually reduce this which was clearly evident patient would need a [id number] reduction clamp. I subsequently had my chef's assistant maintain traction and dial in appropriate rotation once I satisfied with this I made 2 small stab incisions in a perpendicular fashion and placing my tenaculum clamp directly on the bone I then subsequently clamped and held the fracture in satisfactory reduction this was taken multiple orthogonal images satisfied with my reduction and then subsequently proceeded with infrapatellar tibial nail. This was held by my chef's assistant throughout the case. Next I then subsequently used patient's previous midline incision and extended this distally over the tibial tubercle to obtain my infrapatellar starting point sharp scalpel incision through skin subcutaneous tissues dissection scissors to dissect out the peritenon and then subsequently made an arthrotomy medial to the extensor mechanism to perform an arthrotomy. I maintain exact hemostasis throughout this dissection and then subsequently I identified the step off the articular margin and utilized a guidewire and placed this in the standard starting point I used fluoroscopic imaging to make sure this was medial to the lateral tibial spine I did have to cheat the slightly a little more medial given patient's hardware as well as a little more anteriorly to avoid any type of involvement of the partial knee replacement laterally. This was in center center position on AP and lateral once satisfied with this this was advanced to appropriate depth utilize opening reamer and then subsequently placed ball- tipped guidewire down to the tibial physis. I then took appropriate measurement my fracture is maintained throughout this entire time. This was measured to be 375 mm. While maintaining reduction I then subsequently reamed starting at a 9 mm and reamed all the way up to a 13.5 mm which had excellent chatter with left plan for selection of a 12 mm x 375 mm tibial nail. This was then subsequently loaded and then impacted into appropriate position. This was kept in excellent alignment and reduction was maintained. It was confirmed with fluoroscopic imaging. I then subsequently placed 2 of my proximal locking screws utilizing my targeting guide. This was then subsequently triple sleeve was then placed first in the static position sharp incision was made and blunt dissection down to bone placed guide subsequently drilled measured and placed appropriate length screw in the static locking then subsequently drilled in the dynamic position for possible later dynamization if necessary this is subsequently drilled measured appropriate length screw placed here these both had excellent fixation and appropriate length and this completed my proximal fixation Next I then utilized fluoroscopic imaging distally. Once again maintain fracture reduction I obtained perfect circles with plan to start with my medial to lateral screw fixation. Perfect circles were then subsequently obtained I used scalpel incision made through skin and blunt dissection with hemostats down to bone I utilized perfect [place]ahu[place] technique drilled measured and placed appropriate length screws x 2 in the distal locking position this obtained excellent fixation of the distal fracture fragment in order to add increased fixation here given this and the smaller fracture fragment as the distal segment I subsequently did a perfect [place]ahu[place] technique and placed 1 anterior to posterior screw I made a small incision once I obtained a perfect [place]ahu[place] technique and then used blunt dissection to spread directly over the anterior surface of the tibia this was then drilled measured and appropriate length screw was then placed to complete 3 distal locking screws. At this point time clamps and everything was subsequently removed as well as the guides and took final x-rays this was confirmed to being in satisfactory reduction as well as fixation of the tibial nail. The proximal fibula fragment was maintained in good alignment. Ankle was stressed and there is no evidence of issues with the syndesmosis given patient's already osseous fusion. This completed the procedure. I then subsequently thoroughly irrigated all incision sites. We then did place a 5+ millimeter endcap proximally and then subsequently used DBM putty to fill in the reamed anterior portion and closed the medial retinaculum and medial arthrotomy to the patellar tendon to close this area. Once again exact hemostasis was maintained throughout the case the incisions were then closed in layered fashion of 0 Vicryl 2-0 Vicryl and ralph and 2 oh and ralph for all small stab incisions. Incisions were then covered with Xeroform 4 x 4's ABD Curlex soft roll and a standard AO splint was then subsequently applied. Patient tolerated procedure without issues or complications. Patient then subsequently awake from anesthesia and taken to PACU in stable condition Disposition: Patient taken back in stable condition will return to floor postoperatively we will keep nonweightbearing maintain splint rehospitalization will see appropriate discharge instructions well as pain medication DVT prophylaxis.
--- NOTE | 2023-12-28 15:05 | XR_ITS ---
WS: [id number] Right leg including the tibia and fibula, AP and lateral views, 12/28/2023 Clinical Data: r tibia nail Comparison: Right knee, 12/28/2023, right leg 12/28/2023 Findings: There is a long intramedullary alison the length of the tibia fixed proximally and distally with screws. The rods reducing the fracture of the distal third of the right tibia. The old fracture of the dista l right fibula shows a plate and screws unchanged. The right knee hemiarthroplasty remains in good po sition. There is a comminuted fracture of the proximal right fibula. There are surgical ralph at th e operative sites. XR/XR tibia fibula RT 2V 10204 Impression: Internal fixation of fracture of distal third of right tibia.
[2023-12-28] MEDS: lactated ringers 1,000 ML 75 ML IV (15:20)
[2023-12-28] MEDS: calcium carb-vit d 600mg/400unit 1 Tablet 1 EACH PO (17:04)
[2023-12-28] MEDS: heparin 5,000 unit/mL INJ 1 mL 5000 UNIT SUBCUT (17:05)
[2023-12-28] MEDS: chlorhexidine gluconate 0.12% Btl 473 mL 30 ML MUCOUS MEM ×2 (17:07→20:46)
[2023-12-28] MEDS: iron polysaccharide complex 150 mg Capsule PO (17:17)
[2023-12-28] MEDS: zolpidem 5 mg Tablet 10 MG PO (20:45)
[2023-12-28] MEDS: pantoprazole DR 40 mg Tablet PO (20:45)
[2023-12-29] VITALS (12 sets, daily range): BP systolic 105–120; BP diastolic 62–79; PULSE 82–98; RESP 16–18; TEMP 36.8–37.1; O2SAT 93–97
[2023-12-29] MEDS: oxyCODONE 5 mg IR Tab/Cap PO ×3 (03:14→18:08)
[2023-12-29] MEDS: ceFAZolin 2,000 MG in sodium chloride 0.9% (plus) 50 ML 100 MG IV ×2 (03:15→11:20)
[2023-12-29] MEDS: ketorolac 30 mg/mL INJ 15 MG IVP ×3 (03:17→18:08)
[2023-12-29] MEDS: lactated ringers 1,000 ML 75 ML IV ×2 (03:18→17:50)
[2023-12-29] MEDS: morphine 4 mg/mL SDV 1 mL 2 MG IVP ×2 (05:40→11:23)
[2023-12-29] MEDS: heparin 5,000 unit/mL INJ 1 mL 5000 UNIT SUBCUT ×2 (05:42→17:51)
[2023-12-29 06:08] LABS: Basophils % 0.3 %; Eosinophils # 0.1 10^3/uL (0.0-0.8); Eosinophils % 0.6 %; Hematocrit 32.2 % (37-53); Lymphocytes % 25.7 %; Mean Corpuscular HGB Conc 32.3 g/dL (30-55); Mean Corpuscular Hemoglobin 30.2 pg (27-33); Mean Corpuscular Volume 93.6 fl (82-101); Mean Platelet Volume 10.7 fL (7.4-10.4); Monocytes # 0.8 10^3/uL (0.2-0.9); Monocytes % 10.8 %; Neutrophils # 4.84 10^3/uL (1.8-7.7); Neutrophils % 62.2 %; Nucleated Red Blood Cells % 0 %; Platelet Count 162 10^3/cmm (157-399); Red Blood Count 3.44 10^6/uL (3.85-5.65); Red Cell Distribution Width 13.1 % (12.1-15.1); White Blood Count 7.78 10^3/uL (3.29-11.43)
[2023-12-29 06:34] LABS: Anion Gap 12.2 (5-19); Blood Urea Nitrogen 20 mg/dL (8-23); Calcium 7.8 mg/dL (8.5-10.5); Carbon Dioxide 25 mmol/L (22-29); Chloride 106 mmol/L (98-107); Creatinine Clr Calc Pharmacy 94.2312; Glomerular Filtration Rate 74.8 mL/min (90-130); Glucose 108 mg/dL (65-115); Osmolality Calculated 291 mOsm/kg (285-295); Potassium 4.2 mmol/L (3.5-5.1); Sodium 139 mmol/L (136-145)
[2023-12-29] MEDS: OXcarbazepine 300 mg Tablet 900 MG PO ×2 (08:15→17:50)
[2023-12-29] MEDS: multivitamin therapeutic Tablet 1 TAB PO (08:15)
[2023-12-29] MEDS: aspirin 81 mg EC Tablet PO (08:16)
[2023-12-29] MEDS: docusate sodium 100 mg Capsule PO ×2 (08:16→17:50)
[2023-12-29] MEDS: tamsulosin 0.4 mg Capsule 0.400000000000000022 MG PO ×2 (08:16→17:51)
[2023-12-29] MEDS: iron polysaccharide complex 150 mg Capsule PO ×2 (08:16→17:50)
[2023-12-29] MEDS: calcium carb-vit d 600mg/400unit 1 Tablet 1 EACH PO ×2 (08:16→17:50)
[2023-12-29] MEDS: divalproex DR 500 mg Tablet PO ×2 (08:17→17:50)
--- NOTE | 2023-12-29 09:32 | PC.SOCIAL ---
IMM Update Pg. 2 of IMM updated and reviewed with patient who verbalized understanding. Copy provided.
--- NOTE | 2023-12-29 12:57 | P.PN_ITS ---
Subjective 2 Subjective: seen this morning no acute events overnight talked with PT they dont believe pt safe to go home pt says he cannot go up the stairs he is requesting rehab and in agreement with PT recommendations social media content specialist working on rehab placement pt says he would like pain medicine Vitals/I&O/Wt Last Vital Signs Temp 98.3 F 12/29/23 11:33 Pulse 88 12/29/23 11:33 Resp 18 12/29/23 11:33 BP 120/72 12/29/23 11:33 Pulse Ox 97 12/29/23 11:33 O2 Del Method Room Air 12/29/23 11:33 O2 Flow Rate 6 12/28/23 14:31 12/28/23 12/29/23 12/29/23 22:59 06:59 14:59 Intake Total 2913 / 3063 947.5 / 4010.5 530 / 530 Output Total 450 / 600 500 / 500 Balance 2913 / 2913 497.5 / 3410.5 30 / 30 Weight last 48 hrs Weight 116.261 kg Weight 107.7 kg Weight 102.512 kg Physical Exam 2 Narrative: General: Comfortable appearing male sleeping in bed, alert and oriented, conversing appropriately. HEENT: Head shows some prior surgery scarring, with irregular symmetry. Right pupil > left, but round and reactive to light. CV: Regular rate and rhythm, S1-S2 noted, no murmurs or gallops noted Pulm: Clear to auscultation bilaterally GI: Abdomen soft, nontender, bowel sounds active in all quadrants. : Deferred?no patient complaints Extremities: Right leg in splint, wrapped in Darrell wrap. Distal capillary refill intact, distal sensation intact, patient able to move toes. Data 12/29/23 05:44 12/29/23 05:44 A&P Assessment and plan (1) Closed fracture of distal end of right tibia: Patient with right tibia fracture. Orthopedics indicates that should be fixed today N.p.o. Pain control Orthopedic consultation appreciated, they will be taking him to surgery sometime today. Bedrest currently Fall precautions No other obvious injuries Colace added as he is on narcotic Qualifiers: Encounter type: initial encounter Fracture morphology: unspecified fracture morphology Qualified Code(s): S82.301A - Unspecified fracture of lower end of right tibia, initial encounter for closed fracture (2) Seizures: Patient with history of seizures. Reports his last seizure was around the third because he did not take his medication. Continue his current medication. Continue seizure precautions Valproic acid: 29.9 Oxcarbazepine: Pending (3) Essential hypertension: Monitor blood pressure Hold diuretics currently as he is directly preoperative Plan Drug use, methamphetamine, reported by nurse. Monitor for any withdrawal. Multiple other medical problems as outlined in his past medical history Full code Heparin for DVT prophylaxis Todays plan 12/29/2023 - awaiting rehab placement - ortho management as per ortho Attestations 2 Medical Necessity Statement*: awaiting rehab placement Diagnoses Closed fracture of distal end of right tibia S82.301A Encounter type: initial encounter Fracture morphology: unspecified fracture morphology Seizures R56.9 Essential hypertension I10
--- NOTE | 2023-12-29 13:24 | P.PN_ITS ---
Subjective 2 Subjective: Patient seen and examined. Pain controlled medications. Work with therapy today. Vitals/I&O/Wt Last Vital Signs Temp 98.3 F 12/29/23 11:33 Pulse 88 12/29/23 11:33 Resp 18 12/29/23 11:33 BP 120/72 12/29/23 11:33 Pulse Ox 97 12/29/23 11:33 O2 Del Method Room Air 12/29/23 11:33 O2 Flow Rate 6 12/28/23 14:31 12/28/23 12/29/23 12/29/23 22:59 06:59 14:59 Intake Total 2913 / 3063 947.5 / 4010.5 530 / 530 Output Total 450 / 600 500 / 500 Balance 2913 / 2913 497.5 / 3410.5 30 / 30 Weight last 48 hrs Weight 256 lb 5 oz Weight 237 lb 7 oz Weight 226 lb Physical Exam 2 Narrative: Orthopedic examination: Examination right lower extremity demonstrates splint on in place and left in place no signs of saturation, dressing/splint limits examination. Patient endorses sensations intact light touch in the toes and able to wiggle the toes. Rest of motor and sensory examination is limited secondary to patient's splint dressing. His compartments around the splint are soft and compressible. Distal pulses are palpable. Data 12/30/23 05:39 12/30/23 05:39 Xray Ortho: Radiologist's impression: Ordering Provider/Ordering MD: Karlos Tejada Date of Service: 12/28/23 Procedure(s): XR tibia fibula RT 2V 02557 Accession Number(s): [id number] Report Number: [id number] WS: [id number] Right leg including the tibia and fibula, AP and lateral views, 12/28/2023 Clinical Data: r tibia nail Comparison: Right knee, 12/28/2023, right leg 12/28/2023 Findings: There is a long intramedullary alison the length of the tibia fixed proximally and distally with screws. The rods reducing the fracture of the distal third of the right tibia. The old fracture of the distal right fibula shows a plate and screws unchanged. The right knee hemiarthroplasty remains in good position. There is a comminuted fracture of the proximal right fibula. There are surgical ralph at the operative sites. XR/XR tibia fibula RT 2V 55775 Impression: Internal fixation of fracture of distal third of right tibia. A&P Assessment and plan (1) Closed fracture of distal end of right tibia: Qualifiers: Encounter type: initial encounter Fracture morphology: unspecified fracture morphology Qualified Code(s): S82.301A - Unspecified fracture of lower end of right tibia, initial encounter for closed fracture (2) Fracture of proximal end of fibula: Plan Nonweightbearing right lower extremity Dressing change PRN, splint left in place Reviewed x-rays and labs DVT prophylaxis Pain control Elevation and ice as needed PT/OT Orthopedics will continue to follow on the floor, plan for dressing change tomorrow. Attestations 2 Medical Necessity Statement*: Ongoing care right tibial nail and closed treatment of right proximal fibula fracture, awaiting placement for discharge Coding Level of Care Code Acute Code for Chg Fwd Diagnoses Closed fracture of distal end of right tibia S82.301A Encounter type: initial encounter Fracture morphology: unspecified fracture morphology Fracture of proximal end of fibula S82.839A Time Spent (min) 15
[2023-12-29] MEDS: chlorhexidine gluconate 0.12% Btl 473 mL 30 ML MUCOUS MEM ×2 (17:51→21:36)
[2023-12-29] MEDS: pantoprazole DR 40 mg Tablet PO (21:33)
[2023-12-29] MEDS: zolpidem 5 mg Tablet 10 MG PO (21:33)
[2023-12-30] VITALS (8 sets, daily range): BP systolic 106–141; BP diastolic 63–79; PULSE 77–99; RESP 17–20; TEMP 36.3–36.9; O2SAT 94–98
[2023-12-30] MEDS: heparin 5,000 unit/mL INJ 1 mL 5000 UNIT SUBCUT ×2 (05:17→17:23)
[2023-12-30 05:48] LABS: Basophils % 0.3 %; Eosinophils # 0.2 10^3/uL (0.0-0.8); Eosinophils % 3.4 %; Hematocrit 33.1 % (37-53); Lymphocytes # 1.8 10^3/uL (0.8-4.8); Lymphocytes % 26.8 %; Mean Corpuscular HGB Conc 31.1 g/dL (30-55); Mean Corpuscular Hemoglobin 30.3 pg (27-33); Mean Corpuscular Volume 97.4 fl (82-101); Mean Platelet Volume 10.5 fL (7.4-10.4); Monocytes # 0.9 10^3/uL (0.2-0.9); Monocytes % 13.2 %; Neutrophils # 3.79 10^3/uL (1.8-7.7); Nucleated Red Blood Cells % 0 %; Platelet Count 161 10^3/cmm (157-399); Red Cell Distribution Width 13.4 % (12.1-15.1); White Blood Count 6.76 10^3/uL (3.29-11.43)
[2023-12-30 06:03] LABS: Anion Gap 9.5 (5-19); Blood Urea Nitrogen 21 mg/dL (8-23); Calcium 7.4 mg/dL (8.5-10.5); Carbon Dioxide 26 mmol/L (22-29); Chloride 106 mmol/L (98-107); Creatinine Clr Calc Pharmacy 118.4303; Glomerular Filtration Rate 96.7 mL/min (90-130); Glucose 111 mg/dL (65-115); Osmolality Calculated 288 mOsm/kg (285-295); Potassium 4.5 mmol/L (3.5-5.1); Sodium 137 mmol/L (136-145)
[2023-12-30] MEDS: OXcarbazepine 300 mg Tablet 900 MG PO ×2 (08:52→17:22)
[2023-12-30] MEDS: iron polysaccharide complex 150 mg Capsule PO ×2 (08:52→17:22)
[2023-12-30] MEDS: lactated ringers 1,000 ML 75 ML IV (08:52)
[2023-12-30] MEDS: divalproex DR 500 mg Tablet PO ×2 (08:52→17:22)
[2023-12-30] MEDS: tamsulosin 0.4 mg Capsule 0.400000000000000022 MG PO ×2 (08:52→17:22)
[2023-12-30] MEDS: multivitamin therapeutic Tablet 1 TAB PO (08:52)
[2023-12-30] MEDS: aspirin 81 mg EC Tablet PO (08:52)
[2023-12-30] MEDS: docusate sodium 100 mg Capsule PO ×2 (08:53→17:22)
[2023-12-30] MEDS: calcium carb-vit d 600mg/400unit 1 Tablet 1 EACH PO ×2 (08:53→17:23)
[2023-12-30] MEDS: chlorhexidine gluconate 0.12% Btl 473 mL 30 ML MUCOUS MEM ×4 (08:53→20:41)
[2023-12-30] MEDS: oxyCODONE 5 mg IR Tab/Cap PO ×2 (08:53→15:40)
--- NOTE | 2023-12-30 09:09 | P.PN_ITS ---
Subjective 2 Subjective: Patient seen and examined this morning. Hemoglobin stable. Changed dressing today incisions are clean dry and intact and a new standard AO splint was applied. Patient tolerated this. Still has some issues with pain but controlled with medications. Reiterated importance of nonweightbearing. Stable from Ortho standpoint. Vitals/I&O/Wt Last Vital Signs Temp 97.4 F L 12/30/23 07:27 Pulse 89 12/30/23 07:27 Resp 18 12/30/23 08:53 BP 130/79 12/30/23 07:27 Pulse Ox 98 12/30/23 08:53 O2 Del Method Room Air 12/30/23 07:27 O2 Flow Rate 6 12/28/23 14:31 12/29/23 12/30/23 12/30/23 22:59 06:59 14:59 Intake Total 1360 / 1890 2009 1000 / 1000 Output Total 650 / 1150 600 / 1750 Balance 710 / 740 -480 / 260 1000 / 1000 Weight last 48 hrs Weight 259 lb 1 oz Weight 256 lb 5 oz Physical Exam 2 Narrative: Orthopedic examination: Examination right lower extremity demonstrates splint on in place subsequently taken down ralph are in place incisions are clean dry and intact. New dressing applied, new AO splint applied. His compartments are soft compressible endorses sensations intact light touch distally to the toes he is able to perform a straight leg raise he can wiggle toes plantarflex and dorsiflex ankle. Distal pulses are palpable. Normal postoperative swelling and bruising ecchymosis throughout the right lower extremity Data 12/30/23 05:39 12/30/23 05:39 A&P Assessment and plan (1) Closed fracture of distal end of right tibia: Qualifiers: Encounter type: initial encounter Fracture morphology: unspecified fracture morphology Qualified Code(s): S82.301A - Unspecified fracture of lower end of right tibia, initial encounter for closed fracture (2) Fracture of proximal end of fibula: Plan Nonweightbearing right lower extremity Dressing changed today and new splint applied Reviewed x-rays and labs DVT prophylaxis Pain control Elevation and ice as needed PT/OT Stable for discharge from orthopedic standpoint orthopedic surgery team will sign off patient at this time follow peripherally if there is any question pertaining patient care for her to contact orthopedics on-call. Will follow-up with us in the office in 2 weeks. Attestations 2 Medical Necessity Statement*: Ongoing care right tibial nail and closed treatment of right proximal fibula fracture Coding Level of Care Code Acute Code for Chg Fwd Diagnoses Closed fracture of distal end of right tibia S82.301A Encounter type: initial encounter Fracture morphology: unspecified fracture morphology Fracture of proximal end of fibula S82.839A Time Spent (min) 25
[2023-12-30] MEDS: TRAMadol 50 mg Tablet PO ×2 (11:51→17:23)
--- NOTE | 2023-12-30 14:41 | P.PN_ITS ---
Subjective 2 Subjective: Seen this. Morning. No acute events overnight Says he would like more pain meds. Awaiting rehab placement Vitals/I&O/Wt Last Vital Signs Temp 97.5 F L 12/30/23 12:03 Pulse 82 12/30/23 12:03 Resp 19 H 12/30/23 12:03 BP 141/73 12/30/23 12:03 Pulse Ox 94 12/30/23 12:03 O2 Del Method Room Air 12/30/23 12:03 O2 Flow Rate 6 12/28/23 14:31 12/29/23 12/30/23 12/30/23 22:59 06:59 14:59 Intake Total 1360 / 1890 120 / 2010 1480 / 1480 Output Total 650 / 1150 600 / 1750 600 / 600 Balance 710 / 740 -480 / 260 880 / 880 Weight last 48 hrs Weight 117.509 kg Weight 116.261 kg Physical Exam 2 Narrative: General: Comfortable appearing male sleeping in bed, alert and oriented, conversing appropriately. HEENT: Head shows some prior surgery scarring, with irregular symmetry. Right pupil > left, but round and reactive to light. CV: Regular rate and rhythm, S1-S2 noted, no murmurs or gallops noted Pulm: Clear to auscultation bilaterally GI: Abdomen soft, nontender, bowel sounds active in all quadrants. : Deferred?no patient complaints Extremities: Right leg in splint, wrapped in Darrell wrap. Distal capillary refill intact, distal sensation intact, patient able to move toes. Data 12/30/23 05:39 12/30/23 05:39 A&P Assessment and plan (1) Closed fracture of distal end of right tibia: Patient with right tibia fracture. Orthopedics indicates that should be fixed today N.p.o. Pain control Orthopedic consultation appreciated, they will be taking him to surgery sometime today. Bedrest currently Fall precautions No other obvious injuries Colace added as he is on narcotic Qualifiers: Encounter type: initial encounter Fracture morphology: unspecified fracture morphology Qualified Code(s): S82.301A - Unspecified fracture of lower end of right tibia, initial encounter for closed fracture (2) Seizures: Patient with history of seizures. Reports his last seizure was around the third because he did not take his medication. Continue his current medication. Continue seizure precautions Valproic acid: 29.9 Oxcarbazepine: Pending (3) Essential hypertension: Monitor blood pressure Hold diuretics currently as he is directly preoperative Plan Drug use, methamphetamine, reported by nurse. Monitor for any withdrawal. Multiple other medical problems as outlined in his past medical history Full code Heparin for DVT prophylaxis Todays plan 12/30/2023 - awaiting rehab placement - ortho management as per ortho -Adjusted pain medication doses Attestations 2 Medical Necessity Statement*: awaiting rehab placement Diagnoses Closed fracture of distal end of right tibia S82.301A Encounter type: initial encounter Fracture morphology: unspecified fracture morphology Seizures R56.9 Essential hypertension I10
[2023-12-30 16:08] LABS: Oxcarbazepine Metabolite <1.0 mcg/mL (8.0-35.0)
[2023-12-30] MEDS: ketorolac 30 mg/mL INJ 15 MG IVP (19:49)
[2023-12-30] MEDS: pantoprazole DR 40 mg Tablet PO (20:38)
[2023-12-30] MEDS: zolpidem 5 mg Tablet 10 MG PO (20:38)
[2023-12-31] VITALS (12 sets, daily range): BP systolic 109–127; BP diastolic 64–80; PULSE 77–95; RESP 16–19; TEMP 36.3–36.9; O2SAT 94–99
[2023-12-31] MEDS: oxyCODONE 5 mg IR Tab/Cap PO ×4 (03:05→22:57)
[2023-12-31] MEDS: heparin 5,000 unit/mL INJ 1 mL 5000 UNIT SUBCUT ×2 (05:09→16:51)
[2023-12-31] MEDS: lactated ringers 1,000 ML 75 ML IV (05:09)
[2023-12-31 07:26] LABS: Basophils % 0.3 %; Eosinophils # 0.3 10^3/uL (0.0-0.8); Eosinophils % 4.5 %; Hematocrit 32.5 % (37-53); Lymphocytes # 1.7 10^3/uL (0.8-4.8); Lymphocytes % 29.1 %; Mean Corpuscular HGB Conc 30.8 g/dL (30-55); Mean Corpuscular Hemoglobin 31.1 pg (27-33); Mean Corpuscular Volume 100.9 fl (82-101); Monocytes # 0.8 10^3/uL (0.2-0.9); Monocytes % 14.3 %; Neutrophils # 2.95 10^3/uL (1.8-7.7); Neutrophils % 51.5 %; Nucleated Red Blood Cells % 0 %; Platelet Count 169 10^3/cmm (157-399); Red Blood Count 3.22 10^6/uL (3.85-5.65); Red Cell Distribution Width 13.3 % (12.1-15.1); White Blood Count 5.74 10^3/uL (3.29-11.43)
[2023-12-31 07:49] LABS: Blood Urea Nitrogen 14 mg/dL (8-23); Calcium 7.6 mg/dL (8.5-10.5); Carbon Dioxide 25 mmol/L (22-29); Chloride 103 mmol/L (98-107); Creatinine Clr Calc Pharmacy 117.8476; Glomerular Filtration Rate 112.8 mL/min (90-130); Glucose 95 mg/dL (65-115); Osmolality Calculated 280 mOsm/kg (285-295); Sodium 135 mmol/L (136-145)
[2023-12-31 07:56] LABS: Anion Gap 11.2 (5-19); Potassium 4.2 mmol/L (3.5-5.1)
[2023-12-31] MEDS: divalproex DR 500 mg Tablet PO ×2 (08:43→16:50)
[2023-12-31] MEDS: aspirin 81 mg EC Tablet PO (08:43)
[2023-12-31] MEDS: docusate sodium 100 mg Capsule PO ×2 (08:43→16:50)
[2023-12-31] MEDS: OXcarbazepine 300 mg Tablet 900 MG PO ×2 (08:43→16:50)
[2023-12-31] MEDS: tamsulosin 0.4 mg Capsule 0.400000000000000022 MG PO ×2 (08:43→16:51)
[2023-12-31] MEDS: calcium carb-vit d 600mg/400unit 1 Tablet 1 EACH PO ×2 (08:43→16:50)
[2023-12-31] MEDS: multivitamin therapeutic Tablet 1 TAB PO (08:43)
[2023-12-31] MEDS: chlorhexidine gluconate 0.12% Btl 473 mL 30 ML MUCOUS MEM ×3 (08:43→20:03)
[2023-12-31] MEDS: iron polysaccharide complex 150 mg Capsule PO ×2 (08:43→16:50)
--- NOTE | 2023-12-31 09:04 | P.PN_ITS ---
Subjective 2 Subjective: seen today awaiting insurance auth for rehab placement Vitals/I&O/Wt Last Vital Signs Temp 97.3 F L 12/31/23 07:52 Pulse 77 12/31/23 07:52 Resp 18 12/31/23 08:42 BP 127/80 12/31/23 07:52 Pulse Ox 98 12/31/23 08:42 O2 Del Method Room Air 12/31/23 07:52 O2 Flow Rate 6 12/28/23 14:31 12/30/23 12/31/23 12/31/23 22:59 06:59 14:59 Intake Total 880 / 2360 540 / 2900 Output Total 500 / 1100 1150 / 2250 400 / 400 Balance 380 / 1260 -610 / 650 -400 / -400 Weight last 48 hrs Weight 116.375 kg Weight 117.509 kg Physical Exam 2 Narrative: General: NAD HEENT: Head shows some prior surgery scarring, CV: Regular rate and rhythm, S1-S2 noted, no murmurs or gallops noted Pulm: Clear to auscultation bilaterally GI: Abdomen soft, nontender, bowel sounds active in all quadrants. Extremities: Right leg in splint, wrapped in Darrell wrap. Distal capillary refill intact, distal sensation intact, patient able to move toes. Data 12/31/23 06:07 12/31/23 06:07 A&P Assessment and plan (1) Closed fracture of distal end of right tibia: Patient with right tibia fracture. Orthopedics indicates that should be fixed today N.p.o. Pain control Orthopedic consultation appreciated, they will be taking him to surgery sometime today. Bedrest currently Fall precautions No other obvious injuries Colace added as he is on narcotic Qualifiers: Encounter type: initial encounter Fracture morphology: unspecified fracture morphology Qualified Code(s): S82.301A - Unspecified fracture of lower end of right tibia, initial encounter for closed fracture (2) Seizures: Patient with history of seizures. Reports his last seizure was around the third because he did not take his medication. Continue his current medication. Continue seizure precautions Valproic acid: 29.9 Oxcarbazepine: Pending (3) Essential hypertension: Monitor blood pressure Hold diuretics currently as he is directly preoperative Plan Drug use, methamphetamine, reported by nurse. Monitor for any withdrawal. Multiple other medical problems as outlined in his past medical history Full code Heparin for DVT prophylaxis Todays plan 12/31/2023 - awaiting rehab placement - ortho management as per ortho -Adjusted pain medication doses Attestations 2 Medical Necessity Statement*: awaiting rehab placement Diagnoses Closed fracture of distal end of right tibia S82.301A Encounter type: initial encounter Fracture morphology: unspecified fracture morphology Seizures R56.9 Essential hypertension I10
[2023-12-31] MEDS: TRAMadol 50 mg Tablet PO ×2 (12:09→20:03)
[2023-12-31] MEDS: zolpidem 5 mg Tablet 10 MG PO (20:03)
[2023-12-31] MEDS: pantoprazole DR 40 mg Tablet PO (20:03)
[2024-01-01] VITALS (8 sets, daily range): BP systolic 100–117; BP diastolic 65–77; PULSE 77–89; RESP 16–18; TEMP 36.4–36.9; O2SAT 95–98
[2024-01-01 03:48] LABS: Anion Gap 12.1 (5-19); Blood Urea Nitrogen 12 mg/dL (8-23); Calcium 7.6 mg/dL (8.5-10.5); Carbon Dioxide 27 mmol/L (22-29); Chloride 102 mmol/L (98-107); Creatinine Clr Calc Pharmacy 117.8476; Glomerular Filtration Rate 112.8 mL/min (90-130); Glucose 117 mg/dL (65-115); Osmolality Calculated 285 mOsm/kg (285-295); Potassium 4.1 mmol/L (3.5-5.1); Sodium 137 mmol/L (136-145)
[2024-01-01] MEDS: TRAMadol 50 mg Tablet PO ×4 (04:34→22:36)
[2024-01-01] MEDS: heparin 5,000 unit/mL INJ 1 mL 5000 UNIT SUBCUT ×2 (06:21→17:08)
[2024-01-01] MEDS: oxyCODONE 5 mg IR Tab/Cap PO ×3 (06:21→19:05)
[2024-01-01] MEDS: docusate sodium 100 mg Capsule PO ×2 (08:34→17:07)
[2024-01-01] MEDS: calcium carb-vit d 600mg/400unit 1 Tablet 1 EACH PO ×2 (08:34→17:07)
[2024-01-01] MEDS: iron polysaccharide complex 150 mg Capsule PO ×2 (08:34→17:07)
[2024-01-01] MEDS: tamsulosin 0.4 mg Capsule 0.400000000000000022 MG PO ×2 (08:34→17:07)
[2024-01-01] MEDS: divalproex DR 500 mg Tablet PO ×2 (08:34→17:07)
[2024-01-01] MEDS: chlorhexidine gluconate 0.12% Btl 473 mL 30 ML MUCOUS MEM ×4 (08:35→22:37)
[2024-01-01] MEDS: aspirin 81 mg EC Tablet PO (08:35)
[2024-01-01] MEDS: OXcarbazepine 300 mg Tablet 900 MG PO ×2 (08:35→17:07)
[2024-01-01] MEDS: multivitamin therapeutic Tablet 1 TAB PO (08:35)
[2024-01-01 09:38] LABS: SARS Covid-2 Antigen negative (Negative)
--- NOTE | 2024-01-01 11:58 | P.PN_ITS ---
Subjective 2 Subjective: seen today awaiting insurance auth for rehab placement Vitals/I&O/Wt Last Vital Signs Temp 97.9 F 01/01/24 07:57 Pulse 77 01/01/24 07:57 Resp 18 01/01/24 07:57 BP 117/73 01/01/24 07:57 Pulse Ox 95 01/01/24 07:57 O2 Del Method Room Air 01/01/24 07:57 O2 Flow Rate 6 12/28/23 14:31 12/31/23 01/01/24 01/01/24 22:59 06:59 14:59 Intake Total 1960 / 2560 600 / 3160 480 / 480 Output Total 600 / 1400 1200 / 2600 600 / 600 Balance 1360 / 1160 -600 / 560 -120 / -120 Weight last 48 hrs Weight 117.934 kg Weight 116.375 kg Physical Exam 2 Narrative: General: NAD HEENT: Head shows some prior surgery scarring, CV: Regular rate and rhythm, S1-S2 noted, no murmurs or gallops noted Pulm: Clear to auscultation bilaterally GI: Abdomen soft, nontender, bowel sounds active in all quadrants. Extremities: Right leg in splint, wrapped in Darrell wrap. Distal capillary refill intact, distal sensation intact, patient able to move toes. Data 12/31/23 06:07 01/01/24 02:46 A&P Assessment and plan (1) Closed fracture of distal end of right tibia: Patient with right tibia fracture. Orthopedics indicates that should be fixed today N.p.o. Pain control Orthopedic consultation appreciated, they will be taking him to surgery sometime today. Bedrest currently Fall precautions No other obvious injuries Colace added as he is on narcotic Qualifiers: Encounter type: initial encounter Fracture morphology: unspecified fracture morphology Qualified Code(s): S82.301A - Unspecified fracture of lower end of right tibia, initial encounter for closed fracture (2) Seizures: Patient with history of seizures. Reports his last seizure was around the third because he did not take his medication. Continue his current medication. Continue seizure precautions Valproic acid: 29.9 Oxcarbazepine: Pending (3) Essential hypertension: Monitor blood pressure Hold diuretics currently as he is directly preoperative Plan Drug use, methamphetamine, reported by nurse. Monitor for any withdrawal. Multiple other medical problems as outlined in his past medical history Full code Heparin for DVT prophylaxis Todays plan 01/01/2024 - awaiting rehab placement - ortho management as per ortho Attestations 2 Medical Necessity Statement*: awaiting rehab placement Diagnoses Closed fracture of distal end of right tibia S82.301A Encounter type: initial encounter Fracture morphology: unspecified fracture morphology Seizures R56.9 Essential hypertension I10
--- NOTE | 2024-01-01 12:02 | PC.OT ---
OT TREATMENT ATTEMPTED THIS A.M. PATIENT SEATED IN RECLINER. PATIENT STATES THAT HE DOES NOT FEEL WELL TODAY AND WOULD LIKE TO CRAWL UNDER THE BED. HE IS ENCOURAGED TO ALLOW STAFF TO ASSIST WITH GROOMING. HE DECLINES AT THIS TIME BUT IS AGREEABLE TO OT RETURNING IN P.M. TO ATTEMPT.
--- NOTE | 2024-01-01 14:46 | PC.SOCIAL ---
IMM Updated Updated pt on IMM. No questions voiced. Provided pt a copy. Initialed, dated, & timed copy in chart.
[2024-01-01] MEDS: pantoprazole DR 40 mg Tablet PO (22:37)
[2024-01-01] MEDS: lactated ringers 1,000 ML 75 ML IV (22:37)
[2024-01-02] VITALS: BP 119/70; PULSE 83; RESP 18; TEMP 36.8
[2024-01-02 04:00] VITALS: BP 118/73; PULSE 77; RESP 18; TEMP 37; O2SAT 95
[2024-01-02 04:39] VITALS: RESP 22
[2024-01-02] MEDS: oxyCODONE 5 mg IR Tab/Cap PO (04:39)
[2024-01-02] MEDS: heparin 5,000 unit/mL INJ 1 mL 5000 UNIT SUBCUT (05:33)
[2024-01-02 06:00] VITALS: BMI 35.6
[2024-01-02 07:48] VITALS: BP 110/70; PULSE 71; RESP 18; TEMP 36.6; O2SAT 97
[2024-01-02] MEDS: TRAMadol 50 mg Tablet PO (08:08)
[2024-01-02] MEDS: OXcarbazepine 300 mg Tablet 900 MG PO (08:08)
[2024-01-02] MEDS: docusate sodium 100 mg Capsule PO (08:09)
[2024-01-02] MEDS: divalproex DR 500 mg Tablet PO (08:09)
[2024-01-02] MEDS: aspirin 81 mg EC Tablet PO (08:09)
[2024-01-02] MEDS: chlorhexidine gluconate 0.12% Btl 473 mL 30 ML MUCOUS MEM (08:09)
[2024-01-02] MEDS: multivitamin therapeutic Tablet 1 TAB PO (08:09)
[2024-01-02] MEDS: iron polysaccharide complex 150 mg Capsule PO (08:09)
[2024-01-02] MEDS: tamsulosin 0.4 mg Capsule 0.400000000000000022 MG PO (08:09)
[2024-01-02] MEDS: calcium carb-vit d 600mg/400unit 1 Tablet 1 EACH PO (08:09)
--- NOTE | 2024-01-02 08:29 | PM.DCS ---
Discharge Providers Date of Admission: 12/27/23 12:22 Date of Discharge: January 02, 2024 Attending Provider at Admission: Aidan Jerez MD Attending Provider at Discharge: Meghan Herrera MD Primary Care Provider: Lay Lewis MD Diagnoses at Discharge Discharge Diagnosis (1) Closed fracture of distal end of right tibia: Status: Acute Qualifiers: Encounter type: initial encounter Fracture morphology: unspecified fracture morphology Qualified Code(s): S82.301A - Unspecified fracture of lower end of right tibia, initial encounter for closed fracture (2) Seizures: Status: Acute (3) Essential hypertension: Status: Acute Reason for Visit Reason for Visit: fall Hospital Course Hospital Course Patient was admitted for a fall at home and was found to have third distal tibial shaft fracture with associated proximal fibula fracture. Patient underwent surgery 12/27 and received the right tibia infrapatellar intramedullary nail. PT recommended rehab.. Eventually patient was sent to rehab 01/01. He was discharged home on oxycodone, DVT prophylaxis, iron, his usual seizure medications. Blood pressure medications were held as patient's pressure has been on the lower side during hospitalization. They may be restarted gradually. Physical Exam Narrative: General: NAD HEENT: Head shows some prior surgery scarring, CV: Regular rate and rhythm, S1-S2 noted, no murmurs or gallops noted Pulm: Clear to auscultation bilaterally GI: Abdomen soft, nontender, bowel sounds active in all quadrants. Extremities: Right leg in splint, wrapped in Darrell wrap. Distal capillary refill intact, distal sensation intact, patient able to move toes. Discharge Data Studies Completed and Pending Completed Studies During Hospitalization Category Date Time Status CT lower leg RT wo con* [id number] Urgent Cat Scan 12/28/23 06:58 Completed XR ankle RT 2V [id number] Stat Exams 12/27/23 09:54 Completed XR chest 1V portable [id number] Stat Exams 12/27/23 11:35 Completed XR knee RT 1-2V [id number] Urgent Exams 12/28/23 06:58 Completed XR tibia fibula RT 2V [id number] Routine Exams 12/28/23 12:00 Completed XR tibia fibula RT 2V [id number] Routine Exams 12/28/23 15:05 Completed XR tibia fibula RT 2V [id number] Urgent Exams 12/28/23 06:58 Completed Pending at discharge Category Date Time Status Type and Screen Routine Lab 12/28/23 11:00 Uncollected Radiology Impressions Ankle X-Ray 12/27/23 09:54 Impression: 1. Oblique fracture of distal right tibia. 2. Stable internal fixation of distal right fibular fracture. Chest X-Ray 12/27/23 11:35 Impression: Atherosclerosis. Knee X-Ray 12/28/23 06:58 Impression: 1. Comminuted fracture of proximal right fibula. 2. Intact right knee lateral hemiarthroplasty. 3. Moderate osteoarthritis of the medial joint compartment of the right knee. Kellgren-Ronny Classification: grade 3 (moderate): moderate multiple osteophytes, definite narrowing of joint space and some sclerosis and possible deformity of bone ends of the medial joint compartment Lower Extremity CT 12/28/23 06:58 IMPRESSION: 1. Oblique fracture of the distal third of the tibia with anterior displacement by 8 mm. 2. Oblique fracture proximal third of the fibula with 4 mm displacement. 3. Remote RIGHT knee lateral hemiarthroplasty. Plate and screw fixation distal fibula appears intact. There is an associated osseous fusion between the distal tibia and fibula. Tibia/Fibula X-Ray 12/28/23 15:05 Impression: Internal fixation of fracture of distal third of right tibia. Laboratory Results WBC 5.74 10^3/uL (3.29-11.43) 12/31/23 06:07 RBC 3.22 10^6/uL (3.85-5.65) L 12/31/23 06:07 Hgb 10.00 g/dL (11.27-16.99) L 12/31/23 06:07 Hct 32.5 % (37-53) L 12/31/23 06:07 MCV 100.9 fl (82-101) 12/31/23 06:07 MCH 31.1 pg (27-33) 12/31/23 06:07 MCHC 30.8 g/dL (30-55) 12/31/23 06:07 RDW 13.3 % (12.1-15.1) 12/31/23 06:07 Plt Count 169 10^3/cmm (157-399) 12/31/23 06:07 MPV 11.0 fL (7.4-10.4) H 12/31/23 06:07 Neut % (Auto) 51.5 % 12/31/23 06:07 Lymph % (Auto) 29.1 % 12/31/23 06:07 [place] % (Auto) 14.3 % 12/31/23 06:07 Eos % (Auto) 4.5 % 12/31/23 06:07 Baso % (Auto) 0.3 % 12/31/23 06:07 Neut # (Auto) 2.95 10^3/uL (1.8-7.7) 12/31/23 06:07 Lymph # (Auto) 1.7 10^3/uL (0.8-4.8) 12/31/23 06:07 [place] # (Auto) 0.8 10^3/uL (0.2-0.9) 12/31/23 06:07 Eos # (Auto) 0.3 10^3/uL (0.0-0.8) 12/31/23 06:07 Baso # (Auto) 0.0 10^3/uL (0.0-0.1) 12/31/23 06:07 Nucleated RBC % (auto) 0 % 12/31/23 06:07 Nucleated RBCs # 0.0 /100WBC 12/31/23 06:07 PT 13.80 SECONDS (12.1-14.9) 12/27/23 11:48 INR 1.03 (0.8-1.2) 12/27/23 11:48 Sodium 137 mmol/L (136-145) 01/01/24 02:46 Potassium 4.1 mmol/L (3.5-5.1) 01/01/24 02:46 Chloride 102 mmol/L (98-107) 01/01/24 02:46 Carbon Dioxide 27 mmol/L (22-29) 01/01/24 02:46 Anion Gap 12.1 (5-19) 01/01/24 02:46 BUN 12 mg/dL (8-23) 01/01/24 02:46 Creatinine 0.7 mg/dL (0.7-1.2) 01/01/24 02:46 GFR Calculation 112.8 mL/min (90-130) 01/01/24 02:46 Glucose 117 mg/dL (65-115) H 01/01/24 02:46 Calculated Osmolality 285 mOsm/kg (285-295) 01/01/24 02:46 Calcium 7.6 mg/dL (8.5-10.5) L 01/01/24 02:46 Magnesium 2.2 mg/dL (1.7-2.3) 12/28/23 05:16 Total Bilirubin 0.4 mg/dL (0.15-1.2) 12/28/23 05:16 AST 19 U/L (0-40) 12/28/23 05:16 ALT 13 U/L (0-41) 12/28/23 05:16 Alkaline Phosphatase 86 U/L (40-130) 12/28/23 05:16 Total Protein 5.6 g/dL (6.6-8.7) L 12/28/23 05:16 Albumin 3.2 g/dL (3.5-5.2) L 12/28/23 05:16 Globulin 2.4 g/dL (1.3-4.6) 12/28/23 05:16 Valproic Acid 29.9 ug/mL (50-100) L 12/27/23 09:57 Oxcarbazepine Metabol <1.0 mcg/mL (8.0-35.0) L 12/27/23 09:57 SARS-CoV-2 Ag (Rapid) negative (Negative) 01/01/24 08:52 Vitals Last Vital Signs Temp 97.8 F 01/02/24 07:48 Pulse 71 01/02/24 07:48 Resp 18 01/02/24 07:48 BP 110/70 01/02/24 07:48 Pulse Ox 97 01/02/24 07:48 O2 Del Method Room Air 01/02/24 07:48 O2 Flow Rate 6 12/28/23 14:31 Discharge Plan Discharge Patient Disposition: Xfer SNF Condition: Stable Prescriptions: New Lovenox 40 mg/0.4 mL syringe 40 mg SUBCUT DAILY 14 Days Qty: 5.6 0RF oxycodone 5 mg tablet 5 mg PO Q6H PRN (Reason: pain postop) 7 Days Qty: 28 0RF calcium carbonate-vitamin D3 600 mg-10 mcg (400 unit) Tablet 1 tab PO BID Qty: 30 0RF Ferrex 150 150 mg iron Capsule 150 mg PO DAILY Qty: 30 0RF Thera 400 mcg Tablet 1 tab PO DAILY Qty: 30 0RF Continued aspirin 81 mg tablet,delayed release (DR/EC) 81 mg PO DAILY cholecalciferol (vitamin D3) 50 mcg (2,000 unit) tablet 2,000 unit PO DAILY Qty: 30 3RF albuterol sulfate 90 mcg/actuation HFA aerosol inhaler See Rx Instructions .ROUTE .COMPLEX Qty: 8.5 2RF Dose Instruction: INHALE TWO PUFFS BY MOUTH EVERY 6 HOURS As Needed FOR bronchospasm Rx Instructions: INHALE TWO PUFFS BY MOUTH EVERY 6 HOURS As Needed FOR bronchospasm divalproex 500 mg tablet,delayed release (DR/EC) 500 mg PO BID Qty: 60 4RF sildenafil 100 mg tablet See Rx Instructions .ROUTE .COMPLEX Qty: 30 2RF Dose Instruction: TAKE ONE TABLET BY MOUTH DAILY NEEDED FOR sexual activity. take 30 minutes TO FOUR hours BEFORE activity Rx Instructions: TAKE ONE TABLET BY MOUTH DAILY NEEDED FOR sexual activity. take 30 minutes TO FOUR hours BEFORE activity sucralfate 1 gram tablet 1 g PO Q6H tamsulosin 0.4 mg capsule 0.4 mg PO BID pantoprazole 40 mg tablet,delayed release (DR/EC) 40 mg PO BEDTIME docusate sodium 100 mg capsule 200 mg PO BID PRN (Reason: Constipation) oxcarbazepine 600 mg tablet 900 mg PO BID zolpidem 10 mg tablet 10 mg PO BEDTIME Held triamterene-hydrochlorothiazid 37.5-25 mg tablet 1 tab PO QAM Hold Instructions: hold for now. see pcp before resuming Discontinued hydroxyzine HCl 25 mg tablet 25 mg PO BEDTIME PRN (Reason: Sleep) Discharge Orders: Discharge Order (Routine); Ordered 01/02/24 Ordered By: Meghan Herrera Referrals: [facility] [Outside] Karlos Tejada DO [Physician] - 01/16/24 1:00 pm (2weeks) Discharge Diet: Advance as tolerated Discharge Activity: Limit activity as instructed, Use walker/crutches as instructed and As per PT/OT instructions Patient Instructions: Ankle Fracture (ED) Activity Restrictions/Additional Instructions: Tibia intramedullary nail postop Orthopedic discharge instructions: Keep dressing clean dry and intact Leave splint on and in place until follow-up visit Do not get splint wet, if it does contact the office for a office visit to have it changed No baths or soaks Nonweightbearing to operative extremity Utilize crutches/walker/knee scooter as tolerated to continue with ambulation while maintaining restrictions Encourage knee range of motion as tolerated Ice and elevate as needed for pain and swelling Take pain medication as prescribed Take antinausea medication as needed Take blood thinner as prescribed for blood clot prevention Supplement with Citracal/vitamin D for bone health and healing Take [id number] Colace as needed for constipation postoperatively Follow-up with Dr. Tejada in the office in 2 weeks Contact the office for any questions or concerns(i.e. fevers, increased drainage or redness around the incision site etc.) Discharge Attestations Time Spent in Discharge Care*: less than 30 min Quality Metrics Clinical Quality Measures [ No reported AMI, CVA or VTE this stay] Coding Level of Care Code Acute Code for Chg Fwd Diagnoses Closed fracture of distal end of right tibia S82.301A Encounter type: initial encounter Fracture morphology: unspecified fracture morphology Seizures R56.9 Essential hypertension I10
--- NOTE | 2024-01-02 09:20 | PC.NURSE ---
Report called to Tanner MCCONNELL at [facility].
[2024-01-02 09:21] VITALS: BP 110/70; PULSE 71; RESP 18; TEMP 36.6; O2SAT 97
--- NOTE | 2024-01-02 11:25 | PC.NURSE ---
[facility] here to transport pt back to [place]. Pt to transport van via wheelchair with all belongings.
== END 2024-01-02 11:25 | disposition skilled nursing facility (03) | DRG 493 ==
LOC: ER 12:14 → MEDSURG 12:22
PROVIDERS: Student in an Organized Health Care Education/Training Program; Admitting Provider Internal Medicine; Emergency Provider Emergency Medicine; PCP Family Medicine; Visit Provider Internal Medicine
PROC: 0QSG36Z Reposition Right Tibia with Intramedullary Internal Fixation Device, Percutaneous Approach (ICD-10-PCS; principal; 2023-12-28 11:30)
DX: S82.301A Unspecified fracture of lower end of right tibia, initial encounter for closed fracture (principal); F31.81 Bipolar II disorder; S82.101A Unspecified fracture of upper end of right tibia, initial encounter for closed fracture; G40.109 Localization-related (focal) (partial) symptomatic epilepsy and epileptic syndromes with simple partial seizures, not intractable, without status epilepticus; W18.30XA Fall on same level, unspecified, initial encounter; G47.33 Obstructive sleep apnea (adult) (pediatric); I10 Essential (primary) hypertension; F15.90 Other stimulant use, unspecified, uncomplicated; N52.9 Male erectile dysfunction, unspecified; E55.9 Vitamin D deficiency, unspecified; K21.9 Gastro-esophageal reflux disease without esophagitis; N40.0 Benign prostatic hyperplasia without lower urinary tract symptoms; F43.12 Post-traumatic stress disorder, chronic; G89.29 Other chronic pain; Z96.653 Presence of artificial knee joint, bilateral; Z96.642 Presence of left artificial hip joint; Z79.82 Long term (current) use of aspirin; Z11.52 Encounter for screening for COVID-19; Z86.19 Personal history of other infectious and parasitic diseases; Z85.828 Personal history of other malignant neoplasm of skin; Z87.820 Personal history of traumatic brain injury; Z75.1 Person awaiting admission to adequate facility elsewhere
CPT/HCPCS: 36415; 71045; 73560; 73590; 73600; 73700; 76000; 80048; 80053; 80164; 80183; 83735; 85025; 85610; 87426; 93005; 96372; 96374; 96375; 97110; 97116; 97162; 97166; 97530; 97535; 99285; A6446; C1713; C1734; J0131; J0690; J1100; J1170; J1644; J1885; J2270; J2371; J2405; J2704; J3010; J3490; J7030; J7120

== ENCOUNTER 2024-02-12 18:28 | Emergency (ER) | payer MEDICARE, MEDICAID, SELFPAY ==
[2023-10-31 15:43] VITALS: BP 120/74; BMI 40.5
[2024-02-12 18:35] VITALS: BP 114/70; PULSE 107; TEMP 37.1; O2SAT 97; BMI 35.9
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
== END 2024-02-12 19:11 | disposition home or self-care (01) ==
PROVIDERS: Emergency Provider Physician Assistant; PCP Family Medicine
DX: R46.89 Other symptoms and signs involving appearance and behavior (principal); Z79.82 Long term (current) use of aspirin; I10 Essential (primary) hypertension; Z86.19 Personal history of other infectious and parasitic diseases
CPT/HCPCS: 99283